=== PATIENT | female | born 1970 | race Caucasian/White ===

== ENCOUNTER 2017-04-10 18:00 | Emergency (ER) | payer MEDICAID ==
--- NOTE | 2017-04-10 19:00 | ED Physician Chart ---
Chief Complaint/HPI - Patient Information Date Seen:: 04/10/17 Time Seen:: 18:25 Chief Complaint:: left knee pain History of Present Illness:: THIS IS A 46 YO FEMALE WITH LEFT KNEE PAIN ON AND OFF FOR ABOUT A WEEK. SHE DENIES RECENT OR OLD TRAUMA. SHE DENIES A HISTORY OF ARTHRITIS OR JOINT DISEASE. SHE DENIES FEVER AND MUSCLE PAIN . Allergies:: Allergies Allergy/AdvReac Type Severity Reaction Status Date / Time Penicillins Allergy Verified 04/10/17 18:14 Vitals:: Vital Signs - 8 hr 04/10/17 04/10/17 18:15 18:52 Temp 98.3 F 98.0 F HR 74 74 RR 16 17 BP 111/56 111/56 O2 Sat % 97 97 Historian:: Patient, Family Member Review:: Nurse's Note Reviewed Review of Systems - Review of Systems General/Constitutional: No fever, No chills, No weight loss, No weakness, No diaphoresis, No edema, No loss of appetite Skin: No skin lesions, No rash, No bruising Head: No headache, No light-headedness Eyes: No loss of vision, No pain, No diplopia ENT: No earache, No nasal drainage, No sore throat, No tinnitus Neck: No neck pain, No swelling, No thyromegaly, No stiffness, No mass noted Cardio Vascular: No chest pain, No palpitations, No PND, No orthopnea, No edema Pulmonary: No SOB, No cough, No sputum, No wheezing GI: No nausea, No vomiting, No diarrhea, No pain, No melena, No hematochezia, No constipation, No hematemesis G/U: No dysuria, No frequency, No hematuria Musculoskeletal: Bone or joint pain (LEFT KNEE PAIN AND SWELLIING), No back pain , No muscle pain Endocrine: No polyuria, No polydipsia Psychiatric: No prior psych history, No depression, No anxiety, No suicidal ideation Hematopoietic: No bruising, No lymphadenopathy Allergic/Immuno: No urticaria, No angioedema Neurological: No syncope, No focal symptoms, No weakness, No paresthesia, No headache, No seizure, No dizziness, No confusion, No vertigo Past Medical History - Past Medical History Obtainable: Yes Family History: None Social History: Non Smoker, No Alcohol, No Drug Use Family Medical History - Family Member Mother History Unknown: Yes Physical Exam - Physical Examination General/Constitutional: Awake, Well-developed, well-nourished, Alert, No distress, GCS 15, Non-toxic appearing, Ambulatory Head: Atraumatic Eyes: Lids, conjuctiva normal, PERRL, EOMI Skin: Nl inspection, No rash, No skin lesions, No ecchymosis, Well hydrated, No lymphadenopathy ENMT: External ears, nose nl, Nasal exam nl, Lips, teeth, gums nl Neck: Nontender, Full ROM w/o pain, No JVD, No nuchal rigidity, No bruit, No mass, No stridor Respiratory: Nl effort/Exclusion, Clear to Auscultation, No Wheeze/Rhonchi/Rales Cardio Vascular: RRR, No murmur, gallop, rubs, NL S1 S2 GI: No tenderness/rebounding/guarding, No organomegaly, No hernia, Normal BS's, Nondistended, No mass/bruits, No McBurney tenderness : No CVA tenderness Extremities: No tenderness or effusion, Full ROM, normal strength in all extremities, No edema, Normal digits & nails Other Extremities comments:: LEFT KNEE PAINFUL BUT NORMAL ROM AND THERE IS NO SWELLING. Neuro/Psych: Alert/oriented, DTR's symmetric, Normal sensory exam, Normal motor strength, Judgement/insight normal, Mood normal, Normal gait, No focal deficits Misc: normal gait, Normal back, No paraspinal tenderness Labs/Radiology/EKG Results - Radiology Results Results: LEFT KNEE X-RAY = NAD FOUND Assessment - Assessment General Assessment: LEFT KNEE STRAIN ED Septic Shock - . Is Septic Shock (SBP<90, OR Lactate>4 mmol\L) present?: No - <6hrs of presentation: Vital Signs: Vital Signs - 8 hr 04/10/17 04/10/17 18:15 18:52 Temp 98.3 F 98.0 F HR 74 74 RR 16 17 BP 111/56 111/56 O2 Sat % 97 97 Reassessment (Disposition) - Reassessment Reassessment Condition:: Unchanged - Diagnosis Diagnosis:: LEFT KNEE STRAIN - Aftercare/Follow up Instructions Aftercare/Follow-Up Instructions:: Counseled pt regarding lab results/diagnosis & need follow up, Refer to Discharge Instructions, Counseled pt & family regarding lab results/diagnosis & need follow up - Patient Disposition Discharge/Transfer:: Home Condition at Disposition:: Unchanged ED Discharge Plan - Patient Disposition Admit/Discharge/Transfer: PT DISCHARGED HOME Condition at Disposition: Unchanged
--- NOTE | 2017-04-11 10:19 | Diagnostic Imaging Report ---
Exam: Left knee joint HISTORY: Pain Findings: Multiple views of the left knee joint reviewed. The study demonstrates mild degenerative the flattening of the tibial plateau. There is no evidence of fracture dislocation subluxation. The patella is intact. There is no evidence of for joint effusion. IMPRESSION: mild degenerative flattening of tibial plateau, if ligamentous or meniscal injury suspected MRI examination recommended.
== END 2017-04-10 19:10 | disposition home or self-care (01) ==
LOC: ER 18:00
DX: S76.112A Strain of left quadriceps muscle, fascia and tendon, initial encounter (principal); Z88.0 Allergy status to penicillin; X58.XXXA Exposure to other specified factors, initial encounter; Y93.89 Activity, other specified; Y92.89 Other specified places as the place of occurrence of the external cause; Y99.8 Other external cause status
CPT/HCPCS: 73562-TC-LT; Z7502

== ENCOUNTER 2018-02-21 08:03 | Inpatient (IN) | payer MEDICAID ==
--- NOTE | 2018-02-21 08:32 | ED Physician Chart ---
ED Chief Complaint/HPI - Patient Information Date Seen:: 02/21/18 Time Seen:: 08:27 Chief Complaint:: BODY ACHES History of Present Illness:: 47 YR OLD FEMALE WITH BODY ACHES SORE THROAT AND BACK PAIN FOR ONE DAY TOOK TYLENOL FOR PAIN NO VOMITING OR DIARHEA Allergies:: Allergies Allergy/AdvReac Type Severity Reaction Status Date / Time Penicillins Allergy Verified 04/10/17 18:14 Vitals:: Vital Signs - 8 hr 02/21/18 08:13 Temp 99.4 F HR 105 RR 19 BP 128/66 O2 Sat % 97 Historian:: Patient ED Review of Systems - Review of Systems General/Constitutional: Fever, Chills Skin: No skin lesions, No rash, No bruising Head: No headache, No light-headedness Eyes: No loss of vision, No pain, No diplopia ENT: No earache, No nasal drainage, No sore throat, No tinnitus Neck: No neck pain, No swelling, No thyromegaly, No stiffness, No mass noted Cardio Vascular: No chest pain, No palpitations, No PND, No orthopnea, No edema Pulmonary: No SOB, No cough, No sputum, No wheezing GI: No nausea, No vomiting, No diarrhea, No pain, No melena, No hematochezia, No constipation, No hematemesis G/U: Dysuria (BACK PAIN) Musculoskeletal: No bone or joint pain, No back pain, No muscle pain Endocrine: No polyuria, No polydipsia Psychiatric: No prior psych history, No depression, No anxiety, No suicidal ideation Hematopoietic: No bruising, No lymphadenopathy Allergic/Immuno: No urticaria, No angioedema Neurological: No syncope, No focal symptoms, No weakness, No paresthesia, No headache, No seizure, No dizziness, No confusion, No vertigo ED Past Medical History - Past Medical History Obtainable: No Family Medical History - Family Member Mother History Unknown: Yes Ethnicity: Living Status: Still Living Hx Family Hypertension: Yes Hx Family Diabetes: Yes ED Physical Exam - Physical Examination General/Constitutional: Awake, Well-developed, well-nourished, Alert, No distress, GCS 15, Non-toxic appearing, Ambulatory Head: Atraumatic Eyes: Lids, conjuctiva normal, PERRL, EOMI Skin: Nl inspection, No rash, No skin lesions, No ecchymosis, Well hydrated, No lymphadenopathy ENMT: External ears, nose nl, Nasal exam nl, Lips, teeth, gums nl Neck: Nontender, Full ROM w/o pain, No JVD, No nuchal rigidity, No bruit, No mass, No stridor Respiratory: Nl effort/Exclusion, Clear to Auscultation, No Wheeze/Rhonchi/Rales Cardio Vascular: RRR, No murmur, gallop, rubs, NL S1 S2 GI: No tenderness/rebounding/guarding, No organomegaly, No hernia, Normal BS's, Nondistended, No mass/bruits, No McBurney tenderness : No CVA tenderness Extremities: No tenderness or effusion, Full ROM, normal strength in all extremities, No edema, Normal digits & nails Neuro/Psych: Alert/oriented, DTR's symmetric, Normal sensory exam, Normal motor strength, Judgement/insight normal, Mood normal, Normal gait, No focal deficits Misc: Normal back (CVA TEND AND SUPRAPUBIC TEND), No paraspinal tenderness ED Assessment - Assessment General Assessment: FEVER CHILLS BODY ACHES R/O FLU SYNDROME VS UTI ED Septic Shock - . Is Septic Shock (SBP<90, OR Lactate>4 mmol\L) present?: No - <6hrs of presentation: Vital Signs: Vital Signs - 8 hr 02/21/18 08:13 Temp 99.4 F HR 105 RR 19 BP 128/66 O2 Sat % 97 ED Reassessment (Disposition) - Reassessment Reassessment Condition:: Improved - Diagnosis Diagnosis:: BACK PAIN FEVER CHILLS - Patient Disposition Condition at Disposition:: Stable
[2018-02-21] MEDS ORDERED: Sodium Chloride 0.9% 1,000 ML IV ONE (08:40)
[2018-02-21 09:04] LABS: URINE MICROSCOPIC INDICATED? YES; URINE SOURCE CLEAN C
[2018-02-21 09:13] LABS: URINE BILIRUBIN NEGATIVE (NEGATIVE); URINE BLOOD NEGATIVE (NEGATIVE); URINE GLUCOSE (UA) NEGATIVE (NEGATIVE); URINE KETONE NEGATIVE (NEGATIVE); URINE LEUKOCYTE ESTERASE NEGATIVE (NEGATIVE); URINE NITRATE NEGATIVE (NEGATIVE); URINE PH 7.5 (4.6 - 8.0); URINE PROTEIN NEGATIVE (NEGATIVE); URINE UROBILINOGEN 0.2 E.U./dL (0.2 - 1.0)
[2018-02-21 09:17] LABS: URINE CLARITY CLEAR (CLEAR); URINE COLOR YELLOW
[2018-02-21 09:18] LABS: HEMATOCRIT 42.8 % (41.0-60); HEMOGLOBIN 14.7 gm/dL (12-16); MEAN CELL VOLUME 90.4 fl (81-100); MEAN CORPUSCULAR HGB CONC 34.3 pg (28.0-36.0); MEAN PLATELET VOLUME 8.3 fl; PLATELET COUNT 284 Th/cmm (150-400); RED BLOOD COUNT 4.74 Mil/cmm (3.80-5.10)
[2018-02-21 09:20] LABS: WHITE BLOOD COUNT 16.9 Th/cmm (4.8-10.8)
[2018-02-21 09:22] LABS: ALB/GLOB RATIO 1.3 (1.0-1.8); ALBUMIN 4.2 gm/dL (3.7-5.3); ALKALINE PHOSPHATASE 85 U/L (34-104); ANION GAP 11.4 (7.0-16.0); BILIRUBIN,TOTAL 0.4 mg/dL (0.3-1.0); BUN - UREA NITROGEN 10 mg/dL (7-25); CALCIUM SERUM 9.3 mg/dL (8.6-10.3); CARBON DIOXIDE 24.2 mEq/L (21.0-31.0); CHLORIDE 102 mEq/L (98-107); CREATININE - SERUM 0.7 mg/dL (0.6-1.2); GFR AFRICAN-AMERICAN > 60.0 ml/min (>90); GFR NON AFRICAN-AMERICAN > 60.0 ml/min; GLUCOSE 123 mg/dL (70-105); POTASSIUM SERUM 3.6 mEq/L (3.5-5.1); SGOT 20 U/L (13-39); SGPT/ALT 32 U/L (7-52); SODIUM SERUM 134 mEq/L (136-145); TOTAL PROTEIN,SERUM 7.5 gm/dL (6.0-8.3)
[2018-02-21 09:29] LABS: URINE EPITHELIAL CELLS MODERATE /lpf (FEW); URINE RBC 0-2 /hpf (0-5)
[2018-02-21 09:30] LABS: URINE BACTERIA 1+ /hpf (NONE SEEN)
[2018-02-21 09:44] LABS: BAND NEUTROPHILE 4 % (0-10); LYMPHOCYTE 5 % (20-50); MONOCYTE 3 % (2-10); NEUTROPHILS 88 % (40-80); TOTAL CELLS COUNTED 100
--- NOTE | 2018-02-21 10:34 | Diagnostic Imaging Report ---
CT scan of the abdomen and pelvis without intravenous contrast History: Bowel pain Total DLP equals 575 CTDI equals 12.8 Axial sections were obtained from the xiphoid process down to the pubic symphysis. The liver demonstrates a normal size and contour. No focal lesions are seen. The spleen appears normal. No abnormalities are seen in the region of the pancreas. The kidneys appear normal bilaterally. There is evidence for diverticulosis of sigmoid colon without diverticulitis. The exam of the pelvis demonstrates preservation of normal fat planes. The uterus is enlarged. No abnormal soft tissue masses. No abnormal fluid collections. Urinary bladder is distended. Impression: Diverticulosis sigmoid colon. Prominent uterus.
[2018-02-21] MEDS ORDERED: Morphine Sulfate 2 mg/mL 1mL Syr IVP PRN (11:28)
[2018-02-21] MEDS ORDERED: D5-0.45NS 1,000 ML IV SCH (11:31)
[2018-02-21] MEDS ORDERED: metroNIDAZOLE 500mg/NS 100mL 500 MG/100 ML BAG IV ONE (11:54)
[2018-02-21] MEDS ORDERED: Levofloxacin 500mg/100mL 500 MG/100 ML BAG IV SCH (12:30)
[2018-02-21] MEDS: metroNIDAZOLE 500mg/NS 100mL 500 MG/100 ML BAG IV SCH ×2 (12:40→20:28)
[2018-02-22 05:09] LABS: HEMATOCRIT 42.6 % (41.0-60); HEMOGLOBIN 14.6 gm/dL (12-16); MEAN CELL VOLUME 89.1 fl (81-100); MEAN CORPUSCULAR HEMOGLOBIN 30.6 pg (27.0-31.0); MEAN CORPUSCULAR HGB CONC 34.4 pg (28.0-36.0); PLATELET COUNT 283 Th/cmm (150-400); RED BLOOD COUNT 4.78 Mil/cmm (3.80-5.10); RED CELL DISTRIBUTION WIDTH 12.9 % (11.5-20.0)
[2018-02-22] MEDS: metroNIDAZOLE 500mg/NS 100mL 500 MG/100 ML BAG IV SCH ×3 (05:10→20:46)
[2018-02-22 05:13] LABS: WHITE BLOOD COUNT 17.7 Th/cmm (4.8-10.8)
[2018-02-22 05:38] LABS: ALB/GLOB RATIO 1.2 (1.0-1.8); ALBUMIN 3.9 gm/dL (3.7-5.3); ALKALINE PHOSPHATASE 77 U/L (34-104); ANION GAP 11.5 (7.0-16.0); BILIRUBIN,TOTAL 0.3 mg/dL (0.3-1.0); BUN - UREA NITROGEN 9 mg/dL (7-25); CALCIUM SERUM 9.2 mg/dL (8.6-10.3); CARBON DIOXIDE 24.9 mEq/L (21.0-31.0); CHLORIDE 103 mEq/L (98-107); CREATININE - SERUM 0.7 mg/dL (0.6-1.2); GFR AFRICAN-AMERICAN > 60.0 ml/min (>90); GFR NON AFRICAN-AMERICAN > 60.0 ml/min; GLUCOSE 131 mg/dL (70-105); POTASSIUM SERUM 3.4 mEq/L (3.5-5.1); SGOT 15 U/L (13-39); SGPT/ALT 24 U/L (7-52); SODIUM SERUM 136 mEq/L (136-145); TOTAL PROTEIN,SERUM 7.2 gm/dL (6.0-8.3)
[2018-02-22 06:05] LABS: BAND NEUTROPHILE 6 % (0-10); LYMPHOCYTE 7 % (20-50); MONOCYTE 5 % (2-10); NEUTROPHILS 82 % (40-80); TOTAL CELLS COUNTED 100
--- NOTE | 2018-02-22 08:30 | History and Physical ---
History of Present Illness - HPI Chief Complaint: abdominal pain HPI: 47 y/o female who presents to [facility] ER for complaints of bodyaches and joint pain. Patient who presents with WBC's of 16.9. Patient underwent CT abd/pelvis which revealed diverticulitis. Patient was subsequently started on IV antibiotics and IV fluids and kept NPO and admitted for further evaluation and treatment. Vital Signs: Last Vital Signs Temp 97.7 F 02/22/18 07:54 Pulse 81 02/22/18 07:54 Resp 18 02/22/18 07:54 BP 107/65 02/22/18 07:54 Pulse Ox 96 02/22/18 07:54 Past Medical History Cardiovascular: Report: No Pertinent Hx Pulmonary: Report: No Pertinent Hx PHOTOGRAMMETRIC TECHNICIAN: Report: No Pertinent Hx GI: Report: No Pertinent Hx Psych: Report: No Pertinent Hx Musculoskeletal: Report: No Pertinent Hx Rheumatologic: Report: No pertinent Hx Infectious Disease: Report: No Pertinent Hx Renal/: Report: No Pertinent Hx Endocrine: Report: No Pertinent Hx Dermatology: Report: No Pertinent Hx - Past Surgical History Past Surgical History: No pertinent Hx Family Medical History - Family Member Mother History Unknown: Yes Ethnicity: Living Status: Hx Family Cancer: Yes Hx Family Coronary Artery Disease: No Hx Family Congestive Heart Failure: No Hx Family Hypertension: Yes Hx Family Stroke: No Hx Family Diabetes: Yes Hx Family Seizures: No Hx Family Dementia: No Hx Family AIDS: No Hx Family HIV: No Hx Family COPD: No Hx Family Hepatitis: No Hx Family Psychiatric Problems: No Hx Family Tuberculosis: No Social History Smoke: No Alcohol: None Drugs: None Lives: With Family - Medications Home Medications: Home Medication Medication Instructions Recorded Type NK [No Home Meds] 02/21/18 History - Allergies Allergies/Adverse Reactions: Allergies Allergy/AdvReac Type Severity Reaction Status Date / Time Penicillins Allergy Verified 04/10/17 18:14 Review of Systems - Review of Systems Constitutional: Report: No Significant Eyes: Report: No Significant ENT: Report: No Significant Respiratory: Report: No Significant Cardiovascular: Report: No Significant Gastrointestinal: Report: Abdominal Pain Genitourinary: Report: No Significant Musculoskeletal: Report: No Significant Skin: Report: No Significant Neurological: Report: No Significant Physical Exam - Physical Exam HEENT: Report: Ears Nose Throat within normal limits, Pharnyx within normal limits Neck: Report: Within normal limits Cardiovascular Systems: Report: +s1/s2 noted, Regular, Rate and Rhythm Respiratory: Report: Breath Sounds are within normal limits, Clear to Auscultation of lung mosquera Back: Report: Inspection of back is within normal limits. Extremities: Report: Non-tender to palpation. Skin: Report: Color of skin is within normal limits Neuro/Psych: Report: Mood affect is within normal limits, A+Ox3 - Lab Results All Lab Results last 24 hours: Laboratory Results - last 24 hr 02/21/18 02/21/18 02/21/18 08:00 08:00 08:45 WBC 16.9 H RBC 4.74 Hgb 14.7 Hct 42.8 MCV 90.4 MCH 31.0 MCHC Differential 34.3 RDW 13.0 Plt Count 284 MPV 8.3 Neutrophils % CALCULATING MACHINE MECHANIC Band Neutrophils % 4 Lymphocytes % CALCULATING MACHINE MECHANIC Monocytes % CALCULATING MACHINE MECHANIC Eosinophils % CALCULATING MACHINE MECHANIC Basophils % CALCULATING MACHINE MECHANIC Neutrophils (Manual) 88 H Lymphocytes 5 L Monocytes 3 Sodium Potassium Chloride Carbon Dioxide Anion Gap BUN Creatinine Est GFR ( Amer) Est GFR (Non-Af Amer) BUN/Creatinine Ratio Glucose Whole Bld Lactic Acid Calcium Total Bilirubin AST ALT Alkaline Phosphatase Total Protein Albumin Globulin Albumin/Globulin Ratio Urine Source CLEAN C Urine Color YELLOW Urine Clarity CLEAR Urine pH 7.5 Ur Specific [place] 1.010 Urine Protein NEGATIVE Urine Glucose (UA) NEGATIVE Urine Ketones NEGATIVE Urine Blood NEGATIVE Urine Nitrate NEGATIVE Urine Bilirubin NEGATIVE Urine Urobilinogen 0.2 Ur Leukocyte Esterase NEGATIVE Urine RBC 0-2 Urine WBC 2-5 Ur Epithelial Cells MODERATE Urine Bacteria 1+ H Urine Test NEGATIVE 02/21/18 02/21/18 02/22/18 08:45 08:45 05:00 WBC 17.7 H RBC 4.78 Hgb 14.6 Hct 42.6 MCV 89.1 MCH 30.6 MCHC Differential 34.4 RDW 12.9 Plt Count 283 MPV 8.0 Neutrophils % Band Neutrophils % 6 Lymphocytes % Monocytes % Eosinophils % Basophils % Neutrophils (Manual) 82 H Lymphocytes 7 L Monocytes 5 Sodium 134 L Potassium 3.6 Chloride 102 Carbon Dioxide 24.2 Anion Gap 11.4 BUN 10 Creatinine 0.7 Est GFR ( Amer) > 60.0 Est GFR (Non-Af Amer) > 60.0 BUN/Creatinine Ratio 14.3 Glucose 123 H Whole Bld Lactic Acid 1.26 Calcium 9.3 Total Bilirubin 0.4 AST 20 ALT 32 Alkaline Phosphatase 85 Total Protein 7.5 Albumin 4.2 Globulin 3.3 Albumin/Globulin Ratio 1.3 Urine Source Urine Color Urine Clarity Urine pH Ur Specific [place] Urine Protein Urine Glucose (UA) Urine Ketones Urine Blood Urine Nitrate Urine Bilirubin Urine Urobilinogen Ur Leukocyte Esterase Urine RBC Urine WBC Ur Epithelial Cells Urine Bacteria Urine Test 02/22/18 05:00 WBC RBC Hgb Hct MCV MCH MCHC Differential RDW Plt Count MPV Neutrophils % Band Neutrophils % Lymphocytes % Monocytes % Eosinophils % Basophils % Neutrophils (Manual) Lymphocytes Monocytes Sodium 136 Potassium 3.4 L Chloride 103 Carbon Dioxide 24.9 Anion Gap 11.5 BUN 9 Creatinine 0.7 Est GFR ( Amer) > 60.0 Est GFR (Non-Af Amer) > 60.0 BUN/Creatinine Ratio 12.9 Glucose 131 H Whole Bld Lactic Acid Calcium 9.2 Total Bilirubin 0.3 AST 15 ALT 24 Alkaline Phosphatase 77 Total Protein 7.2 Albumin 3.9 Globulin 3.3 Albumin/Globulin Ratio 1.2 Urine Source Urine Color Urine Clarity Urine pH Ur Specific [place] Urine Protein Urine Glucose (UA) Urine Ketones Urine Blood Urine Nitrate Urine Bilirubin Urine Urobilinogen Ur Leukocyte Esterase Urine RBC Urine WBC Ur Epithelial Cells Urine Bacteria Urine Test - Assessment Assessment: Current Active Problems Problem Status Onset GENERALIZED BODY ACHES AND ABDOMINAL EUGENIA Acute abdominal pain diverticulitis UTI - Plan Plan: NPO IV fluids pain meds IV Levofloxacin, IV Flagyl
[2018-02-22] MEDS: Levofloxacin 750mg/150mL 750 MG/150 ML BAG IV SCH (09:20)
[2018-02-22] MEDS ORDERED: Potassium Chloride 20 mEq ER Tab PO ONE (10:00)
--- NOTE | 2018-02-22 10:23 | Diagnostic Imaging Report ---
Ultrasound abdomen HISTORY: Epigastric pain COMPARISON: CT abdomen and pelvis on 02/21/2018 Technique: Sonography of the abdomen was performed in multiple planes. FINDINGS: Exam is limited due to bowel gas. The liver demonstrates increased echogenicity with no evidence of focal lesions. The liver measures 18.1 cm. No definite gallstones. There may be minimal sludge. The gallbladder wall measures 3 mm. The common bile duct measures 5 mm. Evaluation of the pancreas is limited due to bowel gas. The right kidney measures 12.1 x 4.9 cm. No evidence of focal lesions or hydronephrosis. The left kidney measures 10.6 x 5.1 cm. No evidence of focal lesions or hydronephrosis. The spleen measures 10.2 cm. Atherosclerotic vascular disease of the aorta is noted. IMPRESSION: Increased echogenicity of the liver which may be due to underlying fatty infiltration. Mild hepatomegaly is noted. No evidence of gallstones. There may be minimal gallbladder sludge. No pericholecystic fluid.
[2018-02-22] MEDS: D5-0.45NS w/20 mEq KCL 1,000 ML IV SCH (10:29)
--- NOTE | 2018-02-22 23:54 | Consultation ---
DATE OF CONSULTATION: 02/22/2018 INPATIENT GASTROINTESTINAL CONSULTATION REFERRING PHYSICIAN: Dr. Stewart. REASON FOR CONSULTATION: Diverticulitis. HISTORY OF PRESENT ILLNESS: A 47-year-old female complains of diffuse abdominal pain; therefore, came to the hospital, had CT scan that is suggestive of diverticulitis. The patient denies nausea, vomiting, diarrhea, constipation, melena, hematochezia, hematemesis, or coffee ground emesis. PAST MEDICAL HISTORY: None. PAST SURGICAL HISTORY: . FAMILY HISTORY: Noncontributory. SOCIAL HISTORY: Denies tobacco, alcohol or IV drug usage. ALLERGIES: PENICILLIN. CURRENT MEDICATIONS: Tylenol, Levaquin, Flagyl, morphine, Protonix, Ultram. REVIEW OF SYSTEMS: Ten point review of system was performed and the pertinent positive was the abdominal pain. All the systems were otherwise negative. PHYSICAL EXAMINATION: VITAL SIGNS: Temperature 97, breathing 19, pulse of 77, blood pressure 112/61, satting 95%. GENERAL: In no apparent distress. EYES: Anicteric. Normal conjunctivae. HEENT: Normocephalic, atraumatic. Moist mucous membranes. NECK: Soft, supple. CHEST: Clear. No effort. CARDIOVASCULAR: Regular rate and rhythm. ABDOMEN: Soft, nondistended, mildly tender. No rebound, no guarding. SKIN: Warm, dry. EXTREMITIES: Reveal no cyanosis. PSYCHOLOGICAL: Alert and oriented x 3. LABORATORY DATA: Show a white count 17.7, hemoglobin 14.6, platelets of 283. Total bilirubin 0.3, AST 15, ALT 24, alkaline phosphatase 77. test was negative. CT abdomen and pelvis showed diverticulosis. Abdominal ultrasound showed fatty liver. IMPRESSION: A 47-year-old female with abdominal pain, likely due to acute diverticulitis given the elevated white count. The patient has a fatty liver on imaging. LFTs were within normal limits. PLAN: 1. Continue antibiotics. 2. The patient should have a colonoscopy in 6-8 weeks as an outpatient. This is discussed with her and her daughters and they will follow up with her PCP to have this arranged. 3. Gradual weight loss for the fatty liver. Thank you for allowing me to participate. Please call me if any questions. [facility]# [id number] [id number]
[2018-02-23] MEDS: metroNIDAZOLE 500mg/NS 100mL 500 MG/100 ML BAG IV SCH ×3 (05:00→21:10)
[2018-02-23 05:12] LABS: % BASOPHILS 0.5 % (0.0-2.0); % EOSINOPHILS 0.4 % (0.0-5.0); % LYMPHOCYTES 12.7 % (20.0-50.0); % MONOCYTES 10.3 % (2.0-10.0); % NEUTROPHILS 76.1 % (40.0-80.0); BASOPHILE ABSOLUTE 0.1 Th/cumm (0-0.2); EOSINOPHILE ABSOLUTE 0.1 Th/cmm (0.1-0.4); HEMATOCRIT 42.2 % (41.0-60); HEMOGLOBIN 14.3 gm/dL (12-16); LYMPHOCYTE ABSOLUTE 1.8 Th/cmm (1.5-3.0); MEAN CELL VOLUME 90.1 fl (81-100); MEAN CORPUSCULAR HEMOGLOBIN 30.6 pg (27.0-31.0); MEAN PLATELET VOLUME 8.3 fl; MONOCYTE ABSOLUTE 1.5 Th/cmm (0.3-1.0); NEUTROPHILE ABSOLUTE 10.6 Th/cmm (1.8-8.0); PLATELET COUNT 260 Th/cmm (150-400); RED BLOOD COUNT 4.68 Mil/cmm (3.80-5.10); RED CELL DISTRIBUTION WIDTH 13.1 % (11.5-20.0)
[2018-02-23 05:26] LABS: WHITE BLOOD COUNT 14.1 Th/cmm (4.8-10.8)
[2018-02-23 05:39] LABS: ALB/GLOB RATIO 1.3 (1.0-1.8); ALBUMIN 3.9 gm/dL (3.7-5.3); ALKALINE PHOSPHATASE 72 U/L (34-104); ANION GAP 9.6 (7.0-16.0); BILIRUBIN,TOTAL 0.2 mg/dL (0.3-1.0); BUN - UREA NITROGEN 8 mg/dL (7-25); CALCIUM SERUM 9.2 mg/dL (8.6-10.3); CHLORIDE 103 mEq/L (98-107); CREATININE - SERUM 0.7 mg/dL (0.6-1.2); GFR AFRICAN-AMERICAN > 60.0 ml/min (>90); GFR NON AFRICAN-AMERICAN > 60.0 ml/min; GLUCOSE 110 mg/dL (70-105); POTASSIUM SERUM 3.6 mEq/L (3.5-5.1); SGOT 14 U/L (13-39); SGPT/ALT 20 U/L (7-52); SODIUM SERUM 135 mEq/L (136-145)
--- NOTE | 2018-02-23 07:42 | GI Progress Note ---
Subjective - Review of Systems Subjective: 47 YO MALE WITH GALLSTONES CAUSING SYMPTOMS LFTS NORMAL 1.SURGERY EVAL 2.CHECK HIDA Objective - Results Result Diagrams: 02/23/18 04:40 02/23/18 04:40 Recent Labs: Laboratory Last Values WBC 14.1 Th/cmm (4.8-10.8) H D 02/23/18 04:40 RBC 4.68 Mil/cmm (3.80-5.10) 02/23/18 04:40 Hgb 14.3 gm/dL (12-16) 02/23/18 04:40 Hct 42.2 % (41.0-60) 02/23/18 04:40 MCV 90.1 fl (81-100) 02/23/18 04:40 MCH 30.6 pg (27.0-31.0) 02/23/18 04:40 MCHC Differential 34.0 pg (28.0-36.0) 02/23/18 04:40 RDW 13.1 % (11.5-20.0) 02/23/18 04:40 Plt Count 260 Th/cmm (150-400) 02/23/18 04:40 MPV 8.3 fl 02/23/18 04:40 Neutrophils % 76.1 % (40.0-80.0) 02/23/18 04:40 Band Neutrophils % 6 % (0-10) 02/22/18 05:00 Lymphocytes % 12.7 % (20.0-50.0) L 02/23/18 04:40 Monocytes % 10.3 % (2.0-10.0) H 02/23/18 04:40 Eosinophils % 0.4 % (0.0-5.0) 02/23/18 04:40 Basophils % 0.5 % (0.0-2.0) 02/23/18 04:40 Neutrophils (Manual) 82 % (40-80) H 02/22/18 05:00 Lymphocytes 7 % (20-50) L 02/22/18 05:00 Monocytes 5 % (2-10) 02/22/18 05:00 Sodium 135 mEq/L (136-145) L 02/23/18 04:40 Potassium 3.6 mEq/L (3.5-5.1) 02/23/18 04:40 Chloride 103 mEq/L (98-107) 02/23/18 04:40 Carbon Dioxide 26.0 mEq/L (21.0-31.0) 02/23/18 04:40 Anion Gap 9.6 (7.0-16.0) 02/23/18 04:40 BUN 8 mg/dL (7-25) 02/23/18 04:40 Creatinine 0.7 mg/dL (0.6-1.2) 02/23/18 04:40 Est GFR ( Amer) > 60.0 ml/min (>90) 02/23/18 04:40 Est GFR (Non-Af Amer) > 60.0 ml/min 02/23/18 04:40 BUN/Creatinine Ratio 11.4 02/23/18 04:40 Glucose 110 mg/dL (70-105) H 02/23/18 04:40 Whole Bld Lactic Acid 1.26 mmol/L (0.60-1.99) 02/21/18 08:45 Calcium 9.2 mg/dL (8.6-10.3) 02/23/18 04:40 Magnesium 2.1 mg/dL (1.9-2.7) 02/22/18 05:00 Total Bilirubin 0.2 mg/dL (0.3-1.0) L 02/23/18 04:40 AST 14 U/L (13-39) 02/23/18 04:40 ALT 20 U/L (7-52) 02/23/18 04:40 Alkaline Phosphatase 72 U/L (34-104) 02/23/18 04:40 Total Protein 7.0 gm/dL (6.0-8.3) 02/23/18 04:40 Albumin 3.9 gm/dL (3.7-5.3) 02/23/18 04:40 Globulin 3.1 gm/dL 02/23/18 04:40 Albumin/Globulin Ratio 1.3 (1.0-1.8) 02/23/18 04:40 Urine Source CLEAN C 02/21/18 08:00 Urine Color YELLOW 02/21/18 08:00 Urine Clarity CLEAR (CLEAR) 02/21/18 08:00 Urine pH 7.5 (4.6 - 8.0) 02/21/18 08:00 Ur Specific [place] 1.010 (1.005-1.030) 02/21/18 08:00 Urine Protein NEGATIVE mg/dL (NEGATIVE) 02/21/18 08:00 Urine Glucose (UA) NEGATIVE mg/dL (NEGATIVE) 02/21/18 08:00 Urine Ketones NEGATIVE mg/dL (NEGATIVE) 02/21/18 08:00 Urine Blood NEGATIVE (NEGATIVE) 02/21/18 08:00 Urine Nitrate NEGATIVE (NEGATIVE) 02/21/18 08:00 Urine Bilirubin NEGATIVE (NEGATIVE) 02/21/18 08:00 Urine Urobilinogen 0.2 E.U./dL (0.2 - 1.0) 02/21/18 08:00 Ur Leukocyte Esterase NEGATIVE (NEGATIVE) 02/21/18 08:00 Urine RBC 0-2 /hpf (0-5) 02/21/18 08:00 Urine WBC 2-5 /hpf (0-5) 02/21/18 08:00 Ur Epithelial Cells MODERATE /lpf (FEW) 02/21/18 08:00 Urine Bacteria 1+ /hpf (NONE SEEN) H 02/21/18 08:00 Urine Test NEGATIVE 02/21/18 08:00 - Physical Exam Vitals and I&O: Vital Signs Temp 97.4 F 02/23/18 04:00 Pulse 75 02/23/18 04:00 Resp 17 02/23/18 04:00 BP 101/65 02/23/18 04:00 Pulse Ox 97 02/23/18 04:00 Intake & Output 02/22/18 02/23/18 02/23/18 18:59 06:59 18:59 Intake Total 250 340 Balance 250 340 Weight (lbs) 85.275 kg Intake: Intake, IV Amount 250 100 Levofloxacin 750mg/150mL 150 750 mg In 150 ml @ 100 mls/hr IV Q24HR [facility] Rx#: [id number] metroNIDAZOLE 500mg/NS 100 100 100mL 500 mg In 100 ml @ 100 mls/hr IV Q8HR [facility] Rx #:[id number] Oral 240 Other: Weight Source Bedscale Active Medications: Current Medications Acetaminophen (Tylenol) 650 mg PO Q6H PRN PRN Reason: Headache Stop: 04/22/18 13:02 Last Admin: 02/22/18 02:25 Dose: 650 mg Metronidazole (Flagyl) 500 mg in 100 mls @ 100 mls/hr IV Q8HR REPLACED BY [facility] Stop: 04/22/18 12:59 Last Admin: 02/23/18 05:00 Dose: 100 mls/hr Potassium Chloride/Dextrose/Sod Cl (D5-0.45ns W/20 Meq Kcl) 1,000 mls @ 50 mls/ hr IV .Q20H REPLACED BY [facility] Stop: 04/23/18 07:14 Last Admin: 02/22/18 10:29 Dose: 50 mls/hr Levofloxacin (Levaquin Pb) 750 mg in 150 mls @ 100 mls/hr IV Q24HR REPLACED BY [facility] Stop: 04/23/18 08:59 Last Infusion: 02/22/18 10:50 Dose: Infused Morphine Sulfate (Morphine) 2 mg IVP Q6H PRN PRN Reason: Pain (Moderate) Stop: 04/22/18 11:29 Last Admin: 02/21/18 17:00 Dose: 2 mg Pantoprazole Sodium (Protonix) 40 mg IVP DAILY REPLACED BY [facility] Stop: 04/23/18 08:59 Last Admin: 02/22/18 09:25 Dose: 40 mg Tramadol HCl (Ultram) 50 mg PO Q6HR PRN PRN Reason: Pain (Moderate) Stop: 04/23/18 08:58 Last Admin: 02/22/18 21:09 Dose: 50 mg - Procedures Procedures: Procedures Procedure Code Date ASPIRAT CURET-POST DELIV 69.52 02/16/06 DELIVERY ONLY 09016 03/16/08 DX PROC FETUS/AMNION NEC 75.35 07/08/02 EPISIOTOMY 73.6 07/08/02 MONITORING NOS 75.34 03/16/08 LOW CERVICAL 74.1 03/16/08 OBSTETRICAL CARE 88464 07/08/02 OBSTETRICAL CARE 54099 03/29/99 TREATMENT OF MISCARRIAGE 09023 02/16/06 Assessment/Plan - Problem List Patient Problems: All Active Problems GENERALIZED BODY ACHES AND ABDOMINAL EUGENIA (Acute)
--- NOTE | 2018-02-23 08:44 | General Progress Note ---
Subjective - Review of Systems Service Date: 02/23/18 Subjective: Patient was seen and examined. Doing much better. less pain, diarrhea. Objective - Results Result Diagrams: 02/23/18 04:40 02/23/18 04:40 Recent Labs: Laboratory Last Values WBC 14.1 Th/cmm (4.8-10.8) H D 02/23/18 04:40 RBC 4.68 Mil/cmm (3.80-5.10) 02/23/18 04:40 Hgb 14.3 gm/dL (12-16) 02/23/18 04:40 Hct 42.2 % (41.0-60) 02/23/18 04:40 MCV 90.1 fl (81-100) 02/23/18 04:40 MCH 30.6 pg (27.0-31.0) 02/23/18 04:40 MCHC Differential 34.0 pg (28.0-36.0) 02/23/18 04:40 RDW 13.1 % (11.5-20.0) 02/23/18 04:40 Plt Count 260 Th/cmm (150-400) 02/23/18 04:40 MPV 8.3 fl 02/23/18 04:40 Neutrophils % 76.1 % (40.0-80.0) 02/23/18 04:40 Band Neutrophils % 6 % (0-10) 02/22/18 05:00 Lymphocytes % 12.7 % (20.0-50.0) L 02/23/18 04:40 Monocytes % 10.3 % (2.0-10.0) H 02/23/18 04:40 Eosinophils % 0.4 % (0.0-5.0) 02/23/18 04:40 Basophils % 0.5 % (0.0-2.0) 02/23/18 04:40 Neutrophils (Manual) 82 % (40-80) H 02/22/18 05:00 Lymphocytes 7 % (20-50) L 02/22/18 05:00 Monocytes 5 % (2-10) 02/22/18 05:00 Sodium 135 mEq/L (136-145) L 02/23/18 04:40 Potassium 3.6 mEq/L (3.5-5.1) 02/23/18 04:40 Chloride 103 mEq/L (98-107) 02/23/18 04:40 Carbon Dioxide 26.0 mEq/L (21.0-31.0) 02/23/18 04:40 Anion Gap 9.6 (7.0-16.0) 02/23/18 04:40 BUN 8 mg/dL (7-25) 02/23/18 04:40 Creatinine 0.7 mg/dL (0.6-1.2) 02/23/18 04:40 Est GFR ( Amer) > 60.0 ml/min (>90) 02/23/18 04:40 Est GFR (Non-Af Amer) > 60.0 ml/min 02/23/18 04:40 BUN/Creatinine Ratio 11.4 02/23/18 04:40 Glucose 110 mg/dL (70-105) H 02/23/18 04:40 Whole Bld Lactic Acid 1.26 mmol/L (0.60-1.99) 02/21/18 08:45 Calcium 9.2 mg/dL (8.6-10.3) 02/23/18 04:40 Magnesium 2.1 mg/dL (1.9-2.7) 02/22/18 05:00 Total Bilirubin 0.2 mg/dL (0.3-1.0) L 02/23/18 04:40 AST 14 U/L (13-39) 02/23/18 04:40 ALT 20 U/L (7-52) 02/23/18 04:40 Alkaline Phosphatase 72 U/L (34-104) 02/23/18 04:40 Total Protein 7.0 gm/dL (6.0-8.3) 02/23/18 04:40 Albumin 3.9 gm/dL (3.7-5.3) 02/23/18 04:40 Globulin 3.1 gm/dL 02/23/18 04:40 Albumin/Globulin Ratio 1.3 (1.0-1.8) 02/23/18 04:40 Urine Source CLEAN C 02/21/18 08:00 Urine Color YELLOW 02/21/18 08:00 Urine Clarity CLEAR (CLEAR) 02/21/18 08:00 Urine pH 7.5 (4.6 - 8.0) 02/21/18 08:00 Ur Specific [place] 1.010 (1.005-1.030) 02/21/18 08:00 Urine Protein NEGATIVE mg/dL (NEGATIVE) 02/21/18 08:00 Urine Glucose (UA) NEGATIVE mg/dL (NEGATIVE) 02/21/18 08:00 Urine Ketones NEGATIVE mg/dL (NEGATIVE) 02/21/18 08:00 Urine Blood NEGATIVE (NEGATIVE) 02/21/18 08:00 Urine Nitrate NEGATIVE (NEGATIVE) 02/21/18 08:00 Urine Bilirubin NEGATIVE (NEGATIVE) 02/21/18 08:00 Urine Urobilinogen 0.2 E.U./dL (0.2 - 1.0) 02/21/18 08:00 Ur Leukocyte Esterase NEGATIVE (NEGATIVE) 02/21/18 08:00 Urine RBC 0-2 /hpf (0-5) 02/21/18 08:00 Urine WBC 2-5 /hpf (0-5) 02/21/18 08:00 Ur Epithelial Cells MODERATE /lpf (FEW) 02/21/18 08:00 Urine Bacteria 1+ /hpf (NONE SEEN) H 02/21/18 08:00 Urine Test NEGATIVE 02/21/18 08:00 - Physical Exam Vitals and I&O: Vital Signs Temp 96.8 F 02/23/18 08:00 Pulse 68 02/23/18 08:00 Resp 19 02/23/18 08:00 BP 92/51 02/23/18 08:00 Pulse Ox 98 02/23/18 08:00 Intake & Output 02/22/18 02/23/18 02/23/18 18:59 06:59 18:59 Intake Total 250 340 Balance 250 340 Weight (lbs) 85.275 kg Intake: Intake, IV Amount 250 100 Levofloxacin 750mg/150mL 150 750 mg In 150 ml @ 100 mls/hr IV Q24HR [facility] Rx#: [id number] metroNIDAZOLE 500mg/NS 100 100 100mL 500 mg In 100 ml @ 100 mls/hr IV Q8HR [facility] Rx #:[id number] Oral 240 Other: Weight Source Bedscale Active Medications: Current Medications Acetaminophen (Tylenol) 650 mg PO Q6H PRN PRN Reason: Headache Stop: 04/22/18 13:02 Last Admin: 02/22/18 02:25 Dose: 650 mg Metronidazole (Flagyl) 500 mg in 100 mls @ 100 mls/hr IV Q8HR [facility] Stop: 04/22/18 12:59 Last Admin: 02/23/18 05:00 Dose: 100 mls/hr Potassium Chloride/Dextrose/Sod Cl (D5-0.45ns W/20 Meq Kcl) 1,000 mls @ 50 mls/ hr IV .Q20H [facility] Stop: 04/23/18 07:14 Last Admin: 02/22/18 10:29 Dose: 50 mls/hr Levofloxacin (Levaquin Pb) 750 mg in 150 mls @ 100 mls/hr IV Q24HR [facility] Stop: 04/23/18 08:59 Last Infusion: 02/22/18 10:50 Dose: Infused Morphine Sulfate (Morphine) 2 mg IVP Q6H PRN PRN Reason: Pain (Moderate) Stop: 04/22/18 11:29 Last Admin: 02/21/18 17:00 Dose: 2 mg Pantoprazole Sodium (Protonix) 40 mg IVP DAILY [facility] Stop: 04/23/18 08:59 Last Admin: 02/22/18 09:25 Dose: 40 mg Tramadol HCl (Ultram) 50 mg PO Q6HR PRN PRN Reason: Pain (Moderate) Stop: 04/23/18 08:58 Last Admin: 02/22/18 21:09 Dose: 50 mg General: Alert, Oriented x3, No acute distress HEENT: Atraumatic, PERRLA, EOMI Neck: Supple Cardiovascular: Regular rate, Normal S1, Normal S2 Lungs: Clear to auscultation Abdomen: Bowel sounds, Soft Extremities: no Clubbing, no Cyanosis, no Edema - Procedures Procedures: Procedures Procedure Code Date ASPIRAT CURET-POST DELIV 69.52 02/16/06 DELIVERY ONLY 01849 03/16/08 DX PROC FETUS/AMNION NEC 75.35 07/08/02 EPISIOTOMY 73.6 07/08/02 MONITORING NOS 75.34 03/16/08 LOW CERVICAL 74.1 03/16/08 OBSTETRICAL CARE 08188 07/08/02 OBSTETRICAL CARE 27739 03/29/99 TREATMENT OF MISCARRIAGE 27934 02/16/06 Assessment/Plan - Problem List Patient Problems: All Active Problems GENERALIZED BODY ACHES AND ABDOMINAL EUGENIA (Acute) - Assessment Assessment: Current Active Problems Problem Status Onset GENERALIZED BODY ACHES AND ABDOMINAL EUGENIA Acute abdominal pain diverticulitis UTI - Plan Plan: on clear liquids IV fluids pain meds IV Levofloxacin IV Flagyl
[2018-02-23] MEDS: Levofloxacin 750mg/150mL 750 MG/150 ML BAG IV SCH (08:58)
[2018-02-23] MEDS: D5-0.45NS w/20 mEq KCL 1,000 ML IV SCH (12:54)
[2018-02-24] MEDS: metroNIDAZOLE 500mg/NS 100mL 500 MG/100 ML BAG IV SCH ×3 (04:42→21:14)
--- NOTE | 2018-02-24 05:48 | General Progress Note ---
Subjective - Review of Systems Service Date: 02/24/18 Subjective: Patient was seen and examined. Doing much better. less pain, tolerating clear liquids. Objective - Results Result Diagrams: 02/23/18 04:40 02/23/18 04:40 Recent Labs: Laboratory Last Values WBC 14.1 Th/cmm (4.8-10.8) H D 02/23/18 04:40 RBC 4.68 Mil/cmm (3.80-5.10) 02/23/18 04:40 Hgb 14.3 gm/dL (12-16) 02/23/18 04:40 Hct 42.2 % (41.0-60) 02/23/18 04:40 MCV 90.1 fl (81-100) 02/23/18 04:40 MCH 30.6 pg (27.0-31.0) 02/23/18 04:40 MCHC Differential 34.0 pg (28.0-36.0) 02/23/18 04:40 RDW 13.1 % (11.5-20.0) 02/23/18 04:40 Plt Count 260 Th/cmm (150-400) 02/23/18 04:40 MPV 8.3 fl 02/23/18 04:40 Neutrophils % 76.1 % (40.0-80.0) 02/23/18 04:40 Band Neutrophils % 6 % (0-10) 02/22/18 05:00 Lymphocytes % 12.7 % (20.0-50.0) L 02/23/18 04:40 Monocytes % 10.3 % (2.0-10.0) H 02/23/18 04:40 Eosinophils % 0.4 % (0.0-5.0) 02/23/18 04:40 Basophils % 0.5 % (0.0-2.0) 02/23/18 04:40 Neutrophils (Manual) 82 % (40-80) H 02/22/18 05:00 Lymphocytes 7 % (20-50) L 02/22/18 05:00 Monocytes 5 % (2-10) 02/22/18 05:00 Sodium 135 mEq/L (136-145) L 02/23/18 04:40 Potassium 3.6 mEq/L (3.5-5.1) 02/23/18 04:40 Chloride 103 mEq/L (98-107) 02/23/18 04:40 Carbon Dioxide 26.0 mEq/L (21.0-31.0) 02/23/18 04:40 Anion Gap 9.6 (7.0-16.0) 02/23/18 04:40 BUN 8 mg/dL (7-25) 02/23/18 04:40 Creatinine 0.7 mg/dL (0.6-1.2) 02/23/18 04:40 Est GFR ( Amer) > 60.0 ml/min (>90) 02/23/18 04:40 Est GFR (Non-Af Amer) > 60.0 ml/min 02/23/18 04:40 BUN/Creatinine Ratio 11.4 02/23/18 04:40 Glucose 110 mg/dL (70-105) H 02/23/18 04:40 Whole Bld Lactic Acid 1.26 mmol/L (0.60-1.99) 02/21/18 08:45 Calcium 9.2 mg/dL (8.6-10.3) 02/23/18 04:40 Magnesium 2.1 mg/dL (1.9-2.7) 02/22/18 05:00 Total Bilirubin 0.2 mg/dL (0.3-1.0) L 02/23/18 04:40 AST 14 U/L (13-39) 02/23/18 04:40 ALT 20 U/L (7-52) 02/23/18 04:40 Alkaline Phosphatase 72 U/L (34-104) 02/23/18 04:40 Total Protein 7.0 gm/dL (6.0-8.3) 02/23/18 04:40 Albumin 3.9 gm/dL (3.7-5.3) 02/23/18 04:40 Globulin 3.1 gm/dL 02/23/18 04:40 Albumin/Globulin Ratio 1.3 (1.0-1.8) 02/23/18 04:40 Urine Source CLEAN C 02/21/18 08:00 Urine Color YELLOW 02/21/18 08:00 Urine Clarity CLEAR (CLEAR) 02/21/18 08:00 Urine pH 7.5 (4.6 - 8.0) 02/21/18 08:00 Ur Specific [place] 1.010 (1.005-1.030) 02/21/18 08:00 Urine Protein NEGATIVE mg/dL (NEGATIVE) 02/21/18 08:00 Urine Glucose (UA) NEGATIVE mg/dL (NEGATIVE) 02/21/18 08:00 Urine Ketones NEGATIVE mg/dL (NEGATIVE) 02/21/18 08:00 Urine Blood NEGATIVE (NEGATIVE) 02/21/18 08:00 Urine Nitrate NEGATIVE (NEGATIVE) 02/21/18 08:00 Urine Bilirubin NEGATIVE (NEGATIVE) 02/21/18 08:00 Urine Urobilinogen 0.2 E.U./dL (0.2 - 1.0) 02/21/18 08:00 Ur Leukocyte Esterase NEGATIVE (NEGATIVE) 02/21/18 08:00 Urine RBC 0-2 /hpf (0-5) 02/21/18 08:00 Urine WBC 2-5 /hpf (0-5) 02/21/18 08:00 Ur Epithelial Cells MODERATE /lpf (FEW) 02/21/18 08:00 Urine Bacteria 1+ /hpf (NONE SEEN) H 02/21/18 08:00 Urine Test NEGATIVE 02/21/18 08:00 - Physical Exam Vitals and I&O: Vital Signs Temp 97.0 F 02/24/18 04:00 Pulse 63 02/24/18 04:00 Resp 18 02/24/18 04:00 BP 98/52 02/24/18 04:00 Pulse Ox 97 02/24/18 04:00 Intake & Output 02/23/18 02/23/18 02/24/18 06:59 18:59 06:59 Intake Total 1440 250 440 Balance 1440 250 440 Weight (lbs) 85.275 kg 84.504 kg Intake: Intake, IV Amount 1200 250 100 D5-0.45NS w/20 mEq KCL 1, 1000 000 ml @ 50 mls/hr IV . Q20H [facility] Rx#:[id number] Levofloxacin 750mg/150mL 150 750 mg In 150 ml @ 100 mls/hr IV Q24HR [facility] Rx#: [id number] metroNIDAZOLE 500mg/NS 200 100 100 100mL 500 mg In 100 ml @ 100 mls/hr IV Q8HR [facility] Rx #:[id number] Oral 240 340 Other: # Voids 3 # Bowel Movements 0 Weight Source Bedscale Bedscale Active Medications: Current Medications Acetaminophen (Tylenol) 650 mg PO Q6H PRN PRN Reason: Headache Stop: 04/22/18 13:02 Last Admin: 02/22/18 02:25 Dose: 650 mg Metronidazole (Flagyl) 500 mg in 100 mls @ 100 mls/hr IV Q8HR [facility] Stop: 04/22/18 12:59 Last Admin: 02/24/18 04:42 Dose: 100 mls/hr Potassium Chloride/Dextrose/Sod Cl (D5-0.45ns W/20 Meq Kcl) 1,000 mls @ 50 mls/ hr IV .Q20H [facility] Stop: 04/23/18 07:14 Last Admin: 02/23/18 12:54 Dose: 50 mls/hr Levofloxacin (Levaquin Pb) 750 mg in 150 mls @ 100 mls/hr IV Q24HR [facility] Stop: 04/23/18 08:59 Last Infusion: 02/23/18 10:28 Dose: Infused Morphine Sulfate (Morphine) 2 mg IVP Q6H PRN PRN Reason: Pain (Moderate) Stop: 04/22/18 11:29 Last Admin: 02/21/18 17:00 Dose: 2 mg Ondansetron HCl (Zofran) 4 mg IV Q4H PRN PRN Reason: Nausea / Vomiting Stop: 04/24/18 11:20 Last Admin: 02/23/18 11:35 Dose: 4 mg Pantoprazole Sodium (Protonix) 40 mg IVP DAILY [facility] Stop: 04/23/18 08:59 Last Admin: 02/23/18 08:58 Dose: 40 mg Tramadol HCl (Ultram) 50 mg PO Q6HR PRN PRN Reason: Pain (Moderate) Stop: 04/23/18 08:58 Last Admin: 02/23/18 11:35 Dose: 50 mg General: Alert, Oriented x3, No acute distress HEENT: Atraumatic, PERRLA, EOMI Neck: Supple Cardiovascular: Regular rate, Normal S1, Normal S2 Lungs: Clear to auscultation Abdomen: Bowel sounds, Soft Extremities: no Clubbing, no Cyanosis, no Edema - Procedures Procedures: Procedures Procedure Code Date ASPIRAT CURET-POST DELIV 69.52 02/16/06 DELIVERY ONLY 15447 03/16/08 DX PROC FETUS/AMNION NEC 75.35 07/08/02 EPISIOTOMY 73.6 07/08/02 MONITORING NOS 75.34 03/16/08 LOW CERVICAL 74.1 03/16/08 OBSTETRICAL CARE 03683 07/08/02 OBSTETRICAL CARE 05507 03/29/99 TREATMENT OF MISCARRIAGE 72986 02/16/06 Assessment/Plan - Problem List Patient Problems: All Active Problems GENERALIZED BODY ACHES AND ABDOMINAL EUGENIA (Acute) - Assessment Assessment: Current Active Problems Problem Status Onset GENERALIZED BODY ACHES AND ABDOMINAL EUGENIA Acute diarrhea improved abdominal pain better headaches improved diverticulitis improving leukocytosis UTI - Plan Plan: on clear liquids IV fluids pain meds IV Levofloxacin 750mg IV Flagyl 500mg
[2018-02-24 06:31] LABS: % EOSINOPHILS 1.6 % (0.0-5.0); EOSINOPHILE ABSOLUTE 0.1 Th/cmm (0.1-0.4); HEMOGLOBIN 13.8 gm/dL (12-16); RED CELL DISTRIBUTION WIDTH 13.1 % (11.5-20.0)
[2018-02-24 06:40] LABS: % BASOPHILS 0.5 % (0.0-2.0); % LYMPHOCYTES 33.3 % (20.0-50.0); % MONOCYTES 12.2 % (2.0-10.0); % NEUTROPHILS 52.4 % (40.0-80.0); LYMPHOCYTE ABSOLUTE 2.7 Th/cmm (1.5-3.0); MEAN CELL VOLUME 90.9 fl (81-100); MEAN CORPUSCULAR HEMOGLOBIN 29.8 pg (27.0-31.0); MEAN CORPUSCULAR HGB CONC 32.8 pg (28.0-36.0); MEAN PLATELET VOLUME 8.2 fl; NEUTROPHILE ABSOLUTE 4.2 Th/cmm (1.8-8.0); PLATELET COUNT 300 Th/cmm (150-400); RED BLOOD COUNT 4.62 Mil/cmm (3.80-5.10)
[2018-02-24 06:41] LABS: BUN - UREA NITROGEN 8 mg/dL (7-25); CALCIUM SERUM 9.3 mg/dL (8.6-10.3); CARBON DIOXIDE 24.7 mEq/L (21.0-31.0); CHLORIDE 105 mEq/L (98-107); CREATININE - SERUM 0.7 mg/dL (0.6-1.2); GFR AFRICAN-AMERICAN > 60.0 ml/min (>90); GFR NON AFRICAN-AMERICAN > 60.0 ml/min; GLUCOSE 89 mg/dL (70-105); POTASSIUM SERUM 3.7 mEq/L (3.5-5.1); SODIUM SERUM 138 mEq/L (136-145)
[2018-02-24] MEDS: Levofloxacin 750mg/150mL 750 MG/150 ML BAG IV SCH (08:28)
--- NOTE | 2018-02-24 09:19 | GI Progress Note ---
Subjective - Review of Systems Subjective: FEELING BETTER WANTS TO EAT MORE Objective - Results Result Diagrams: 02/24/18 05:50 02/24/18 05:50 Recent Labs: Laboratory Last Values WBC 8.0 Th/cmm (4.8-10.8) 02/24/18 05:50 RBC 4.62 Mil/cmm (3.80-5.10) 02/24/18 05:50 Hgb 13.8 gm/dL (12-16) 02/24/18 05:50 Hct 42.0 % (41.0-60) 02/24/18 05:50 MCV 90.9 fl (81-100) 02/24/18 05:50 MCH 29.8 pg (27.0-31.0) 02/24/18 05:50 MCHC Differential 32.8 pg (28.0-36.0) 02/24/18 05:50 RDW 13.1 % (11.5-20.0) 02/24/18 05:50 Plt Count 300 Th/cmm (150-400) 02/24/18 05:50 MPV 8.2 fl 02/24/18 05:50 Neutrophils % 52.4 % (40.0-80.0) 02/24/18 05:50 Band Neutrophils % 6 % (0-10) 02/22/18 05:00 Lymphocytes % 33.3 % (20.0-50.0) 02/24/18 05:50 Monocytes % 12.2 % (2.0-10.0) H 02/24/18 05:50 Eosinophils % 1.6 % (0.0-5.0) 02/24/18 05:50 Basophils % 0.5 % (0.0-2.0) 02/24/18 05:50 Neutrophils (Manual) 82 % (40-80) H 02/22/18 05:00 Lymphocytes 7 % (20-50) L 02/22/18 05:00 Monocytes 5 % (2-10) 02/22/18 05:00 Sodium 138 mEq/L (136-145) 02/24/18 05:50 Potassium 3.7 mEq/L (3.5-5.1) 02/24/18 05:50 Chloride 105 mEq/L (98-107) 02/24/18 05:50 Carbon Dioxide 24.7 mEq/L (21.0-31.0) 02/24/18 05:50 Anion Gap 12.0 (7.0-16.0) 02/24/18 05:50 BUN 8 mg/dL (7-25) 02/24/18 05:50 Creatinine 0.7 mg/dL (0.6-1.2) 02/24/18 05:50 Est GFR ( Amer) > 60.0 ml/min (>90) 02/24/18 05:50 Est GFR (Non-Af Amer) > 60.0 ml/min 02/24/18 05:50 BUN/Creatinine Ratio 11.4 02/24/18 05:50 Glucose 89 mg/dL (70-105) 02/24/18 05:50 Whole Bld Lactic Acid 1.26 mmol/L (0.60-1.99) 02/21/18 08:45 Calcium 9.3 mg/dL (8.6-10.3) 02/24/18 05:50 Magnesium 2.1 mg/dL (1.9-2.7) 02/22/18 05:00 Total Bilirubin 0.2 mg/dL (0.3-1.0) L 02/23/18 04:40 AST 14 U/L (13-39) 02/23/18 04:40 ALT 20 U/L (7-52) 02/23/18 04:40 Alkaline Phosphatase 72 U/L (34-104) 02/23/18 04:40 Total Protein 7.0 gm/dL (6.0-8.3) 02/23/18 04:40 Albumin 3.9 gm/dL (3.7-5.3) 02/23/18 04:40 Globulin 3.1 gm/dL 02/23/18 04:40 Albumin/Globulin Ratio 1.3 (1.0-1.8) 02/23/18 04:40 Urine Source CLEAN C 02/21/18 08:00 Urine Color YELLOW 02/21/18 08:00 Urine Clarity CLEAR (CLEAR) 02/21/18 08:00 Urine pH 7.5 (4.6 - 8.0) 02/21/18 08:00 Ur Specific [place] 1.010 (1.005-1.030) 02/21/18 08:00 Urine Protein NEGATIVE mg/dL (NEGATIVE) 02/21/18 08:00 Urine Glucose (UA) NEGATIVE mg/dL (NEGATIVE) 02/21/18 08:00 Urine Ketones NEGATIVE mg/dL (NEGATIVE) 02/21/18 08:00 Urine Blood NEGATIVE (NEGATIVE) 02/21/18 08:00 Urine Nitrate NEGATIVE (NEGATIVE) 02/21/18 08:00 Urine Bilirubin NEGATIVE (NEGATIVE) 02/21/18 08:00 Urine Urobilinogen 0.2 E.U./dL (0.2 - 1.0) 02/21/18 08:00 Ur Leukocyte Esterase NEGATIVE (NEGATIVE) 02/21/18 08:00 Urine RBC 0-2 /hpf (0-5) 02/21/18 08:00 Urine WBC 2-5 /hpf (0-5) 02/21/18 08:00 Ur Epithelial Cells MODERATE /lpf (FEW) 02/21/18 08:00 Urine Bacteria 1+ /hpf (NONE SEEN) H 02/21/18 08:00 Urine Test NEGATIVE 02/21/18 08:00 - Physical Exam Vitals and I&O: Vital Signs Temp 97.2 F 02/24/18 07:45 Pulse 70 02/24/18 07:45 Resp 18 02/24/18 07:45 BP 113/74 02/24/18 07:45 Pulse Ox 96 02/24/18 07:45 Intake & Output 02/23/18 02/24/18 02/24/18 18:59 06:59 18:59 Intake Total 250 440 Balance 250 440 Weight (lbs) 84.504 kg Intake: Intake, IV Amount 250 100 Levofloxacin 750mg/150mL 150 750 mg In 150 ml @ 100 mls/hr IV Q24HR [facility] Rx#: [id number] metroNIDAZOLE 500mg/NS 100 100 100mL 500 mg In 100 ml @ 100 mls/hr IV Q8HR [facility] Rx #:[id number] Oral 340 Other: # Voids 3 # Bowel Movements 0 Weight Source Bedscale Active Medications: Current Medications Acetaminophen (Tylenol) 650 mg PO Q6H PRN PRN Reason: Headache Stop: 04/22/18 13:02 Last Admin: 02/22/18 02:25 Dose: 650 mg Metronidazole (Flagyl) 500 mg in 100 mls @ 100 mls/hr IV Q8HR [facility] Stop: 04/22/18 12:59 Last Admin: 02/24/18 04:42 Dose: 100 mls/hr Potassium Chloride/Dextrose/Sod Cl (D5-0.45ns W/20 Meq Kcl) 1,000 mls @ 50 mls/ hr IV .Q20H [facility] Stop: 04/23/18 07:14 Last Admin: 02/23/18 12:54 Dose: 50 mls/hr Levofloxacin (Levaquin Pb) 750 mg in 150 mls @ 100 mls/hr IV Q24HR [facility] Stop: 04/23/18 08:59 Last Admin: 02/24/18 08:28 Dose: 100 mls/hr Morphine Sulfate (Morphine) 2 mg IVP Q6H PRN PRN Reason: Pain (Moderate) Stop: 04/22/18 11:29 Last Admin: 02/21/18 17:00 Dose: 2 mg Ondansetron HCl (Zofran) 4 mg IV Q4H PRN PRN Reason: Nausea / Vomiting Stop: 04/24/18 11:20 Last Admin: 02/23/18 11:35 Dose: 4 mg Pantoprazole Sodium (Protonix) 40 mg IVP DAILY [facility] Stop: 04/23/18 08:59 Last Admin: 02/24/18 08:28 Dose: 40 mg Tramadol HCl (Ultram) 50 mg PO Q6HR PRN PRN Reason: Pain (Moderate) Stop: 04/23/18 08:58 Last Admin: 02/23/18 11:35 Dose: 50 mg General: Alert, Oriented x3, No acute distress HEENT: Atraumatic, PERRLA, EOMI Neck: Supple Cardiovascular: Regular rate, Normal S1, Normal S2 Lungs: Clear to auscultation Abdomen: Bowel sounds, Soft Extremities: no Clubbing, no Cyanosis, no Edema - Procedures Procedures: Procedures Procedure Code Date ASPIRAT CURET-POST DELIV 69.52 02/16/06 DELIVERY ONLY 82358 03/16/08 DX PROC FETUS/AMNION NEC 75.35 07/08/02 EPISIOTOMY 73.6 07/08/02 MONITORING NOS 75.34 03/16/08 LOW CERVICAL 74.1 03/16/08 OBSTETRICAL CARE 57151 07/08/02 OBSTETRICAL CARE 91048 03/29/99 TREATMENT OF MISCARRIAGE 49501 02/16/06 Assessment/Plan - Problem List Patient Problems: All Active Problems GENERALIZED BODY ACHES AND ABDOMINAL EUGENIA (Acute) - Assessment Assessment: 47 YO FEMALE WITH DIVERTICULITIS CT SHOWED DIVERTICULOSIS WBC NORMALIZED LFTS NORMAL 1.CONT ABX 2.ADVANCE DIET 3.WILL NEED COLONOSCOPY IN 6-8 WEEKS OUTPATIENT; D/W PT AND FAMILY THAT THEY NEED TO SEE PCP TO ARRANGE OUTPATIENT COLO
[2018-02-24] MEDS: D5-0.45NS w/20 mEq KCL 1,000 ML IV SCH (16:39)
[2018-02-25] MEDS: metroNIDAZOLE 500mg/NS 100mL 500 MG/100 ML BAG IV SCH (04:03)
--- NOTE | 2018-02-25 07:57 | GI Progress Note ---
Subjective - Review of Systems Subjective: FEELING BETTER WANTING TO HOME Objective - Results Result Diagrams: 02/24/18 05:50 02/24/18 05:50 Recent Labs: Laboratory Last Values WBC 8.0 Th/cmm (4.8-10.8) 02/24/18 05:50 RBC 4.62 Mil/cmm (3.80-5.10) 02/24/18 05:50 Hgb 13.8 gm/dL (12-16) 02/24/18 05:50 Hct 42.0 % (41.0-60) 02/24/18 05:50 MCV 90.9 fl (81-100) 02/24/18 05:50 MCH 29.8 pg (27.0-31.0) 02/24/18 05:50 MCHC Differential 32.8 pg (28.0-36.0) 02/24/18 05:50 RDW 13.1 % (11.5-20.0) 02/24/18 05:50 Plt Count 300 Th/cmm (150-400) 02/24/18 05:50 MPV 8.2 fl 02/24/18 05:50 Neutrophils % 52.4 % (40.0-80.0) 02/24/18 05:50 Band Neutrophils % 6 % (0-10) 02/22/18 05:00 Lymphocytes % 33.3 % (20.0-50.0) 02/24/18 05:50 Monocytes % 12.2 % (2.0-10.0) H 02/24/18 05:50 Eosinophils % 1.6 % (0.0-5.0) 02/24/18 05:50 Basophils % 0.5 % (0.0-2.0) 02/24/18 05:50 Neutrophils (Manual) 82 % (40-80) H 02/22/18 05:00 Lymphocytes 7 % (20-50) L 02/22/18 05:00 Monocytes 5 % (2-10) 02/22/18 05:00 Sodium 138 mEq/L (136-145) 02/24/18 05:50 Potassium 3.7 mEq/L (3.5-5.1) 02/24/18 05:50 Chloride 105 mEq/L (98-107) 02/24/18 05:50 Carbon Dioxide 24.7 mEq/L (21.0-31.0) 02/24/18 05:50 Anion Gap 12.0 (7.0-16.0) 02/24/18 05:50 BUN 8 mg/dL (7-25) 02/24/18 05:50 Creatinine 0.7 mg/dL (0.6-1.2) 02/24/18 05:50 Est GFR ( Amer) > 60.0 ml/min (>90) 02/24/18 05:50 Est GFR (Non-Af Amer) > 60.0 ml/min 02/24/18 05:50 BUN/Creatinine Ratio 11.4 02/24/18 05:50 Glucose 89 mg/dL (70-105) 02/24/18 05:50 Whole Bld Lactic Acid 1.26 mmol/L (0.60-1.99) 02/21/18 08:45 Calcium 9.3 mg/dL (8.6-10.3) 02/24/18 05:50 Magnesium 2.1 mg/dL (1.9-2.7) 02/22/18 05:00 Total Bilirubin 0.2 mg/dL (0.3-1.0) L 02/23/18 04:40 AST 14 U/L (13-39) 02/23/18 04:40 ALT 20 U/L (7-52) 02/23/18 04:40 Alkaline Phosphatase 72 U/L (34-104) 02/23/18 04:40 Total Protein 7.0 gm/dL (6.0-8.3) 02/23/18 04:40 Albumin 3.9 gm/dL (3.7-5.3) 02/23/18 04:40 Globulin 3.1 gm/dL 02/23/18 04:40 Albumin/Globulin Ratio 1.3 (1.0-1.8) 02/23/18 04:40 Urine Source CLEAN C 02/21/18 08:00 Urine Color YELLOW 02/21/18 08:00 Urine Clarity CLEAR (CLEAR) 02/21/18 08:00 Urine pH 7.5 (4.6 - 8.0) 02/21/18 08:00 Ur Specific [place] 1.010 (1.005-1.030) 02/21/18 08:00 Urine Protein NEGATIVE mg/dL (NEGATIVE) 02/21/18 08:00 Urine Glucose (UA) NEGATIVE mg/dL (NEGATIVE) 02/21/18 08:00 Urine Ketones NEGATIVE mg/dL (NEGATIVE) 02/21/18 08:00 Urine Blood NEGATIVE (NEGATIVE) 02/21/18 08:00 Urine Nitrate NEGATIVE (NEGATIVE) 02/21/18 08:00 Urine Bilirubin NEGATIVE (NEGATIVE) 02/21/18 08:00 Urine Urobilinogen 0.2 E.U./dL (0.2 - 1.0) 02/21/18 08:00 Ur Leukocyte Esterase NEGATIVE (NEGATIVE) 02/21/18 08:00 Urine RBC 0-2 /hpf (0-5) 02/21/18 08:00 Urine WBC 2-5 /hpf (0-5) 02/21/18 08:00 Ur Epithelial Cells MODERATE /lpf (FEW) 02/21/18 08:00 Urine Bacteria 1+ /hpf (NONE SEEN) H 02/21/18 08:00 Urine Test NEGATIVE 02/21/18 08:00 - Physical Exam Vitals and I&O: Vital Signs Temp 97.2 F 02/25/18 07:39 Pulse 63 02/25/18 07:39 Resp 18 02/25/18 07:39 BP 109/60 02/25/18 07:39 Pulse Ox 95 02/25/18 07:39 Intake & Output 02/24/18 02/25/18 02/25/18 18:59 06:59 18:59 Intake Total 1250 100 Balance 1250 100 Weight (lbs) 84.368 kg Intake: Intake, IV Amount 1250 100 D5-0.45NS w/20 mEq KCL 1, 1000 000 ml @ 50 mls/hr IV . Q20H [facility] Rx#:[id number] Levofloxacin 750mg/150mL 150 750 mg In 150 ml @ 100 mls/hr IV Q24HR [facility] Rx#: [id number] metroNIDAZOLE 500mg/NS 100 100 100mL 500 mg In 100 ml @ 100 mls/hr IV Q8HR [facility] Rx #:[id number] Other: Stool Characteristics Formed Soft Weight Source Estimated Active Medications: Current Medications Acetaminophen (Tylenol) 650 mg PO Q6H PRN PRN Reason: Headache Stop: 04/22/18 13:02 Last Admin: 02/22/18 02:25 Dose: 650 mg Metronidazole (Flagyl) 500 mg in 100 mls @ 100 mls/hr IV Q8HR [facility] Stop: 04/22/18 12:59 Last Admin: 02/25/18 04:03 Dose: 100 mls/hr Potassium Chloride/Dextrose/Sod Cl (D5-0.45ns W/20 Meq Kcl) 1,000 mls @ 50 mls/ hr IV .Q20H [facility] Stop: 04/23/18 07:14 Last Admin: 02/24/18 16:39 Dose: 50 mls/hr Levofloxacin (Levaquin Pb) 750 mg in 150 mls @ 100 mls/hr IV Q24HR [facility] Stop: 04/23/18 08:59 Last Infusion: 02/24/18 10:00 Dose: Infused Morphine Sulfate (Morphine) 2 mg IVP Q6H PRN PRN Reason: Pain (Moderate) Stop: 04/22/18 11:29 Last Admin: 02/21/18 17:00 Dose: 2 mg Ondansetron HCl (Zofran) 4 mg IV Q4H PRN PRN Reason: Nausea / Vomiting Stop: 04/24/18 11:20 Last Admin: 02/24/18 09:46 Dose: 4 mg Pantoprazole Sodium (Protonix) 40 mg IVP DAILY [facility] Stop: 04/23/18 08:59 Last Admin: 02/24/18 08:28 Dose: 40 mg Tramadol HCl (Ultram) 50 mg PO Q6HR PRN PRN Reason: Pain (Moderate) Stop: 04/23/18 08:58 Last Admin: 02/23/18 11:35 Dose: 50 mg General: Alert, Oriented x3, No acute distress HEENT: Atraumatic, PERRLA, EOMI Neck: Supple Cardiovascular: Regular rate, Normal S1, Normal S2 Lungs: Clear to auscultation Abdomen: Bowel sounds, Soft Extremities: no Clubbing, no Cyanosis, no Edema - Procedures Procedures: Procedures Procedure Code Date ASPIRAT CURET-POST DELIV 69.52 02/16/06 DELIVERY ONLY 50782 03/16/08 DX PROC FETUS/AMNION NEC 75.35 07/08/02 EPISIOTOMY 73.6 07/08/02 MONITORING NOS 75.34 03/16/08 LOW CERVICAL 74.1 03/16/08 OBSTETRICAL CARE 76055 07/08/02 OBSTETRICAL CARE 79390 03/29/99 TREATMENT OF MISCARRIAGE 29613 02/16/06 Assessment/Plan - Problem List Patient Problems: All Active Problems GENERALIZED BODY ACHES AND ABDOMINAL EUGENIA (Acute) - Assessment Assessment: 47 YO FEMALE WITH DIVERTICULITIS CT SHOWED DIVERTICULOSIS WBC NORMALIZED LFTS NORMAL 1.CONT ABX 2.ADVANCE DIET 3.WILL NEED COLONOSCOPY IN 6-8 WEEKS OUTPATIENT; D/W PT AND FAMILY THAT THEY NEED TO SEE PCP TO ARRANGE OUTPATIENT COLO
[2018-02-25] MEDS: Levofloxacin 750mg/150mL 750 MG/150 ML BAG IV SCH (08:08)
--- NOTE | 2018-02-25 08:42 | General Progress Note ---
Subjective - Review of Systems Service Date: 02/25/18 Subjective: Patient was seen and examined. Doing much better. denies abdominal pain. no diarrhea. advance diet to regular diet. Objective - Results Result Diagrams: 02/24/18 05:50 02/24/18 05:50 Recent Labs: Laboratory Last Values WBC 8.0 Th/cmm (4.8-10.8) 02/24/18 05:50 RBC 4.62 Mil/cmm (3.80-5.10) 02/24/18 05:50 Hgb 13.8 gm/dL (12-16) 02/24/18 05:50 Hct 42.0 % (41.0-60) 02/24/18 05:50 MCV 90.9 fl (81-100) 02/24/18 05:50 MCH 29.8 pg (27.0-31.0) 02/24/18 05:50 MCHC Differential 32.8 pg (28.0-36.0) 02/24/18 05:50 RDW 13.1 % (11.5-20.0) 02/24/18 05:50 Plt Count 300 Th/cmm (150-400) 02/24/18 05:50 MPV 8.2 fl 02/24/18 05:50 Neutrophils % 52.4 % (40.0-80.0) 02/24/18 05:50 Band Neutrophils % 6 % (0-10) 02/22/18 05:00 Lymphocytes % 33.3 % (20.0-50.0) 02/24/18 05:50 Monocytes % 12.2 % (2.0-10.0) H 02/24/18 05:50 Eosinophils % 1.6 % (0.0-5.0) 02/24/18 05:50 Basophils % 0.5 % (0.0-2.0) 02/24/18 05:50 Neutrophils (Manual) 82 % (40-80) H 02/22/18 05:00 Lymphocytes 7 % (20-50) L 02/22/18 05:00 Monocytes 5 % (2-10) 02/22/18 05:00 Sodium 138 mEq/L (136-145) 02/24/18 05:50 Potassium 3.7 mEq/L (3.5-5.1) 02/24/18 05:50 Chloride 105 mEq/L (98-107) 02/24/18 05:50 Carbon Dioxide 24.7 mEq/L (21.0-31.0) 02/24/18 05:50 Anion Gap 12.0 (7.0-16.0) 02/24/18 05:50 BUN 8 mg/dL (7-25) 02/24/18 05:50 Creatinine 0.7 mg/dL (0.6-1.2) 02/24/18 05:50 Est GFR ( Amer) > 60.0 ml/min (>90) 02/24/18 05:50 Est GFR (Non-Af Amer) > 60.0 ml/min 02/24/18 05:50 BUN/Creatinine Ratio 11.4 02/24/18 05:50 Glucose 89 mg/dL (70-105) 02/24/18 05:50 Whole Bld Lactic Acid 1.26 mmol/L (0.60-1.99) 02/21/18 08:45 Calcium 9.3 mg/dL (8.6-10.3) 02/24/18 05:50 Magnesium 2.1 mg/dL (1.9-2.7) 02/22/18 05:00 Total Bilirubin 0.2 mg/dL (0.3-1.0) L 02/23/18 04:40 AST 14 U/L (13-39) 02/23/18 04:40 ALT 20 U/L (7-52) 02/23/18 04:40 Alkaline Phosphatase 72 U/L (34-104) 02/23/18 04:40 Total Protein 7.0 gm/dL (6.0-8.3) 02/23/18 04:40 Albumin 3.9 gm/dL (3.7-5.3) 02/23/18 04:40 Globulin 3.1 gm/dL 02/23/18 04:40 Albumin/Globulin Ratio 1.3 (1.0-1.8) 02/23/18 04:40 Urine Source CLEAN C 02/21/18 08:00 Urine Color YELLOW 02/21/18 08:00 Urine Clarity CLEAR (CLEAR) 02/21/18 08:00 Urine pH 7.5 (4.6 - 8.0) 02/21/18 08:00 Ur Specific [place] 1.010 (1.005-1.030) 02/21/18 08:00 Urine Protein NEGATIVE mg/dL (NEGATIVE) 02/21/18 08:00 Urine Glucose (UA) NEGATIVE mg/dL (NEGATIVE) 02/21/18 08:00 Urine Ketones NEGATIVE mg/dL (NEGATIVE) 02/21/18 08:00 Urine Blood NEGATIVE (NEGATIVE) 02/21/18 08:00 Urine Nitrate NEGATIVE (NEGATIVE) 02/21/18 08:00 Urine Bilirubin NEGATIVE (NEGATIVE) 02/21/18 08:00 Urine Urobilinogen 0.2 E.U./dL (0.2 - 1.0) 02/21/18 08:00 Ur Leukocyte Esterase NEGATIVE (NEGATIVE) 02/21/18 08:00 Urine RBC 0-2 /hpf (0-5) 02/21/18 08:00 Urine WBC 2-5 /hpf (0-5) 02/21/18 08:00 Ur Epithelial Cells MODERATE /lpf (FEW) 02/21/18 08:00 Urine Bacteria 1+ /hpf (NONE SEEN) H 02/21/18 08:00 Urine Test NEGATIVE 02/21/18 08:00 - Physical Exam Vitals and I&O: Vital Signs Temp 97.2 F 02/25/18 07:39 Pulse 63 02/25/18 07:39 Resp 18 02/25/18 07:39 BP 109/60 02/25/18 07:39 Pulse Ox 95 02/25/18 07:39 Intake & Output 02/24/18 02/25/18 02/25/18 18:59 06:59 18:59 Intake Total 1250 100 Balance 1250 100 Weight (lbs) 84.368 kg Intake: Intake, IV Amount 1250 100 D5-0.45NS w/20 mEq KCL 1, 1000 000 ml @ 50 mls/hr IV . Q20H [facility] Rx#:[id number] Levofloxacin 750mg/150mL 150 750 mg In 150 ml @ 100 mls/hr IV Q24HR [facility] Rx#: [id number] metroNIDAZOLE 500mg/NS 100 100 100mL 500 mg In 100 ml @ 100 mls/hr IV Q8HR [facility] Rx #:[id number] Other: Stool Characteristics Formed Soft Weight Source Estimated Active Medications: Current Medications Acetaminophen (Tylenol) 650 mg PO Q6H PRN PRN Reason: Headache Stop: 04/22/18 13:02 Last Admin: 02/22/18 02:25 Dose: 650 mg Metronidazole (Flagyl) 500 mg in 100 mls @ 100 mls/hr IV Q8HR [facility] Stop: 04/22/18 12:59 Last Admin: 02/25/18 04:03 Dose: 100 mls/hr Potassium Chloride/Dextrose/Sod Cl (D5-0.45ns W/20 Meq Kcl) 1,000 mls @ 50 mls/ hr IV .Q20H [facility] Stop: 04/23/18 07:14 Last Admin: 02/24/18 16:39 Dose: 50 mls/hr Levofloxacin (Levaquin Pb) 750 mg in 150 mls @ 100 mls/hr IV Q24HR [facility] Stop: 04/23/18 08:59 Last Admin: 02/25/18 08:08 Dose: 100 mls/hr Morphine Sulfate (Morphine) 2 mg IVP Q6H PRN PRN Reason: Pain (Moderate) Stop: 04/22/18 11:29 Last Admin: 02/21/18 17:00 Dose: 2 mg Ondansetron HCl (Zofran) 4 mg IV Q4H PRN PRN Reason: Nausea / Vomiting Stop: 04/24/18 11:20 Last Admin: 02/24/18 09:46 Dose: 4 mg Pantoprazole Sodium (Protonix) 40 mg IVP DAILY [facility] Stop: 04/23/18 08:59 Last Admin: 02/25/18 08:08 Dose: 40 mg Tramadol HCl (Ultram) 50 mg PO Q6HR PRN PRN Reason: Pain (Moderate) Stop: 04/23/18 08:58 Last Admin: 02/23/18 11:35 Dose: 50 mg General: Alert, Oriented x3, No acute distress HEENT: Atraumatic, PERRLA, EOMI Neck: Supple Cardiovascular: Regular rate, Normal S1, Normal S2 Lungs: Clear to auscultation Abdomen: Bowel sounds, Soft Extremities: no Clubbing, no Cyanosis, no Edema - Procedures Procedures: Procedures Procedure Code Date ASPIRAT CURET-POST DELIV 69.52 02/16/06 DELIVERY ONLY 58016 03/16/08 DX PROC FETUS/AMNION NEC 75.35 07/08/02 EPISIOTOMY 73.6 07/08/02 MONITORING NOS 75.34 03/16/08 LOW CERVICAL 74.1 03/16/08 OBSTETRICAL CARE 55249 07/08/02 OBSTETRICAL CARE 26296 03/29/99 TREATMENT OF MISCARRIAGE 04599 02/16/06 Assessment/Plan - Problem List Patient Problems: All Active Problems GENERALIZED BODY ACHES AND ABDOMINAL EUGENIA (Acute) - Assessment Assessment: Current Active Problems Problem Status Onset GENERALIZED BODY ACHES AND ABDOMINAL EUGENIA Acute diarrhea improved abdominal pain better headaches improved diverticulitis improving leukocytosis improved. 8K UTI - Plan Plan: on clear liquids IV fluids pain meds IV Levofloxacin 750mg IV Flagyl 500mg may DC home today if OK with GI
--- NOTE | 2018-03-01 12:06 | Discharge Summary ---
DATE OF DISCHARGE: 02/25/2018 PRELIMINARY DIAGNOSES: 1. Abdominal pain. 2. Diverticulitis. 3. Urinary tract infection. DISCHARGE DIAGNOSES: 1. Abdominal pain. 2. Diverticulitis. 3. Urinary tract infection. BRIEF HISTORY OF PRESENT ILLNESS: This is a 47-year-old female who presents to [facility] ER for complaints of body aches and joint pain. The patient presents with a white count of 16.9 thousand. While in the ER, the patient was seen by ER physician who ordered a CT of the abdomen and pelvis, which revealed acute diverticulitis. The patient was then subsequently started on IV antibiotics and IV fluids and kept n.p.o. initially and was then admitted for further evaluation and treatment. HOSPITAL COURSE: The patient improved during her hospital stay. His white count had started at 16.9 thousand on initial admission. This was repeated the following days and until the 02/24/2018, it had decreased down to 8.0. During her hospital stay, the patient was seen and evaluated by GI. See dictated report. Abdominal ultrasound also was ordered, which did not reveal anything acute. The patient's diet was then advanced from clear liquids to full liquids to a soft diet. She was subsequently discharged in stable condition, wants to follow up with her regular physician in 3-5 days. The patient was advised to avoid any foods, have nuts or seeds. The patient was then also given a course of antibiotics for which she takes orally, which includes Flagyl and Levaquin for a week. [facility]# [id number]
== END 2018-02-25 11:20 | disposition home or self-care (01) | DRG 244 ==
LOC: ER 08:03 → MSI 11:26
PROVIDERS: ADMIT Family Medicine; ATTEND Family Medicine
DX: K57.32 Diverticulitis of large intestine without perforation or abscess without bleeding (principal); R65.11 Systemic inflammatory response syndrome (SIRS) of non-infectious origin with acute organ dysfunction; K76.0 Fatty (change of) liver, not elsewhere classified; N39.0 Urinary tract infection, site not specified; R19.7 Diarrhea, unspecified; R51 Headache; Z88.0 Allergy status to penicillin; Z82.49 Family history of ischemic heart disease and other diseases of the circulatory system; Z83.3 Family history of diabetes mellitus
CPT/HCPCS: 36415-UA; 76700-TC; 80048-TC; 80053-TC; 81001-TC; 81025-TC; 83605; 83735-TC; 85007-TC; 85025-TC; 85027-TC; 90784; 90799; 96374; C9113; J1885; J1956; J2270; J2405; J7030; Z7610

== ENCOUNTER 2018-12-22 10:29 | Inpatient (IN) | payer MEDICAID ==
--- NOTE | 2018-12-22 10:50 | ED Physician Chart ---
ED Chief Complaint/HPI - Patient Information Date Seen:: 12/22/18 Time Seen:: 10:35 Chief Complaint:: Dyspnea History of Present Illness:: onset x 2 days of dyspnea, fever, cough, and chest pain; pt denies trauma, H/As , neck pain, Abd. Pain, A/N/V/D/C, chills, or urinary s/s Allergies:: Allergies Allergy/AdvReac Type Severity Reaction Status Date / Time Penicillins Allergy Verified 04/10/17 18:14 Vitals:: Vital Signs - 8 hr 12/22/18 10:34 Temp 97.6 F HR 86 RR 18 BP 125/82 O2 Sat % 97 Historian:: Patient Review:: Nurse's Note Reviewed, Old Chart Reviewed ED Review of Systems - Review of Systems General/Constitutional: Fever, No chills, No weight loss, No weakness, No diaphoresis, No edema, No loss of appetite Skin: No skin lesions, No rash, No bruising Head: No headache, No light-headedness Eyes: No loss of vision, No pain, No diplopia ENT: No earache, No nasal drainage, No sore throat, No tinnitus Neck: No neck pain, No swelling, No thyromegaly, No stiffness, No mass noted Cardio Vascular: Chest pain, Palpitations, No PND, No orthopnea, No edema Pulmonary: SOB, Cough, No sputum, No wheezing GI: No nausea, No vomiting, No diarrhea, No pain, No melena, No hematochezia, No constipation, No hematemesis G/U: No dysuria, No frequency, No hematuria Job Interviewer: No vaginal discharge, No abnormal vaginal bleed, No contraction Musculoskeletal: No bone or joint pain, No back pain, No muscle pain Endocrine: No polyuria, No polydipsia Psychiatric: No prior psych history, No depression, No anxiety, No suicidal ideation, No homicidal ideation, No auditory hallucination, No visual hallucination Hematopoietic: No bruising, No lymphadenopathy Allergic/Immuno: No urticaria, No angioedema Neurological: No syncope, No focal symptoms, No weakness, No paresthesia, No headache, No seizure, No dizziness, No confusion, No vertigo ED Past Medical History - Past Medical History Obtainable: Yes Past Medical History: HTN, Dyslipidemia Family History: HTN Social History: Non Smoker, No Alcohol, No Drug Use, Single Surgical History: None Psychiatricy History: None Medication: Reviewed Family Medical History - Family Member Mother History Unknown: Yes Ethnicity: Living Status: Hx Family Cancer: Yes Hx Family Coronary Artery Disease: No Hx Family Congestive Heart Failure: No Hx Family Hypertension: Yes Hx Family Stroke: No Hx Family Diabetes: Yes Hx Family Seizures: No Hx Family Dementia: No Hx Family AIDS: No Hx Family HIV: No Hx Family COPD: No Hx Family Hepatitis: No Hx Family Psychiatric Problems: No Hx Family Tuberculosis: No ED Physical Exam - Physical Examination General/Constitutional: Awake, Well-developed, well-nourished, Alert, No distress, GCS 15, Non-toxic appearing, Ambulatory Head: Atraumatic Eyes: Lids, conjuctiva normal, PERRL, EOMI Skin: Nl inspection, No rash, No skin lesions, No ecchymosis, Well hydrated, No lymphadenopathy ENMT: External ears, nose nl, TM canals nl, Nasal exam nl, Lips, teeth, gums nl , Oropharynx nl, Tonsils nl Neck: Nontender, Full ROM w/o pain, No JVD, No nuchal rigidity, No bruit, No mass, No stridor Other Neck comments:: supple; no meningeal signs; no cervical tenderness Respiratory: Nl effort/Exclusion Other Respiratory comments:: Lungs: + Rales and Rhonchi Cardio Vascular: RRR, No murmur, gallop, rubs, NL S1 S2, Carotid/Femoral/Distal pulses equal bilaterally GI: No tenderness/rebounding/guarding, No organomegaly, No hernia, Normal BS's, Nondistended, No mass/bruits, No McBurney tenderness, Rectum exam nl Other GI comments:: no pulsatile masses : No CVA tenderness Extremities: No tenderness or effusion, Full ROM, normal strength in all extremities, No edema, Normal digits & nails Neuro/Psych: Alert/oriented, DTR's symmetric, Normal sensory exam, Normal motor strength, Judgement/insight normal, Mood normal, Normal gait, No focal deficits Misc: Normal back, No paraspinal tenderness ED Labs/Radiology/EKG Results - Lab Results Comments:: Reviewed - Radiology Results Comments:: CXR: + Patchy RLL Infiltrate - EKG Interpretations EKG Time:: 10:50 Rate & Rhythm: 70; NSR Comments:: non-specific st-t changes ED Septic Shock - . Is Septic Shock (SBP<90, OR Lactate>4 mmol\L) present?: No - <6hrs of presentation: Vital Signs: Vital Signs - 8 hr 12/22/18 10:34 Temp 97.6 F HR 86 RR 18 BP 125/82 O2 Sat % 97 ED Reassessment (Disposition) - Reassessment Reassessment Condition:: Improved - Diagnosis Diagnosis:: Dyspnea; Chest Pain; Angina Pectoris; Fever; PNA; Sepsis; Leukocytosis - Aftercare/Follow up Instructions Aftercare/Follow-Up Instructions:: Counseled pt regarding lab results/diagnosis & need follow up, Counseled pt & family regarding lab results/diagnosis & need follow up - Patient Disposition Discharge/Transfer:: Acute Care w/in this hosp Accepting Physician:: Dr. Corea Time Called:: 1230 Time Responded:: 12:30 Admitted to:: Telemetry Spoke to:: Dr. Corea Admitting Medical Physician:: Dr. Corea Condition at Disposition:: Stable, Improved
[2018-12-22 11:05] LABS: % BASOPHILS 0.5 % (0.0-2.0); % LYMPHOCYTES 11.7 % (20.0-50.0); % MONOCYTES 8.5 % (2.0-10.0); % NEUTROPHILS 78.3 % (40.0-80.0); BASOPHILE ABSOLUTE 0.1 Th/cumm (0-0.2); EOSINOPHILE ABSOLUTE 0.1 Th/cmm (0.1-0.4); HEMATOCRIT 41.2 % (41.0-60); HEMOGLOBIN 14.3 gm/dL (12-16); LYMPHOCYTE ABSOLUTE 1.7 Th/cmm (1.5-3.0); MEAN CELL VOLUME 90.1 fl (81-100); MEAN CORPUSCULAR HEMOGLOBIN 31.3 pg (27.0-31.0); MEAN CORPUSCULAR HGB CONC 34.7 pg (28.0-36.0); MEAN PLATELET VOLUME 7.9 fl; MONOCYTE ABSOLUTE 1.2 Th/cmm (0.3-1.0); NEUTROPHILE ABSOLUTE 11.6 Th/cmm (1.8-8.0); PLATELET COUNT 265 Th/cmm (150-400); RED BLOOD COUNT 4.57 Mil/cmm (3.80-5.10); RED CELL DISTRIBUTION WIDTH 12.1 % (11.5-20.0); WHITE BLOOD COUNT 14.7 Th/cmm (4.8-10.8)
[2018-12-22 11:21] LABS: INR 0.97 (0.5-1.4); PROTHROMBIN TIME (TEST) 10.1 SECONDS (9.5-11.5)
[2018-12-22 11:22] LABS: ALBUMIN 4.1 gm/dL (3.7-5.3); ALKALINE PHOSPHATASE 87 U/L (34-104); ANION GAP 13.6 (7.0-16.0); BILIRUBIN,TOTAL 0.4 mg/dL (0.3-1.0); BUN - UREA NITROGEN 7 mg/dL (7-25); CALCIUM SERUM 9.2 mg/dL (8.6-10.3); CARBON DIOXIDE 23.9 mEq/L (21.0-31.0); CHLORIDE 102 mEq/L (98-107); CHOLESTEROL 168 mg/dL (<200); CREATININE - SERUM 0.6 mg/dL (0.6-1.2); CREATININE KINASE 130 U/L (30-223); GFR AFRICAN-AMERICAN > 60.0 ml/min (>90); GFR NON AFRICAN-AMERICAN > 60.0 ml/min; GLUCOSE 103 mg/dL (70-105); HDL -HIGH DENSITY LIPOPROTEIN 37 mg/dL (23-92); POTASSIUM SERUM 3.5 mEq/L (3.5-5.1); SGOT 18 U/L (13-39); SGPT/ALT 26 U/L (7-52); SODIUM SERUM 136 mEq/L (136-145); TRIGLYCERIDES 87 mg/dL (<150)
[2018-12-22 11:35] LABS: DDIMER QUANT 211 ng/mL (100-400)
[2018-12-22] MEDS ORDERED: Aspirin 81mg Chewable Tab PO ONE (12:00)
[2018-12-22] MEDS ORDERED: Aspirin 81mg Chewable Tab ONE (12:15)
[2018-12-22] MEDS ORDERED: Levofloxacin 500mg/100mL 500 MG/100 ML BAG IV ONE ×2 (12:34→12:59)
[2018-12-22 12:56] LABS: ALB/GLOB RATIO 1.1 (1.0-1.8)
--- NOTE | 2018-12-22 13:04 | Diagnostic Imaging Report ---
Portable chest x-ray History: Pain Allowing for portable technique the heart size is normal. No focal pulmonary parenchymal processes. No hilar or mediastinal abnormalities. Impression: No acute abnormalities.
[2018-12-22] MEDS ORDERED: Levofloxacin 750mg/150mL 750 MG/150 ML BAG IV SCH (14:15)
[2018-12-22] MEDS: Albuterol/Ipratropium Neb 3 ML AERS HHN SCH ×3 (15:36→23:30)
[2018-12-22] MEDS ORDERED: Pneumococcal Vaccine 0.5 mL Vial IM ONE (15:43)
[2018-12-22 15:53] VITALS: BP 121/74
[2018-12-22] MEDS: D5-0.45NS w/20 mEq KCL 1,000 ML IV SCH (16:16)
--- NOTE | 2018-12-22 22:51 | History & Physical ---
ADMIT DATE: 12/22/2018 CHIEF COMPLAINT: Cough and shortness of breath for 1-week duration. HISTORY OF PRESENT ILLNESS: The patient is a 48-year-old female who presented to the Emergency Room complaining of cough and shortness of breath for 1-week duration, evaluated by the ER physician. Initial workup significant for pneumonia. The patient admitted to the hospital, started on IV fluid, antibiotic and breathing treatment. No chest pain, no nausea, no vomiting, no fever, no chills. PAST MEDICAL HISTORY: Negative. PAST SURGICAL HISTORY: Negative. ALLERGIES: PENICILLIN. MEDICATIONS: None. SOCIAL HISTORY: No smoking, no alcohol, no drugs. FAMILY HISTORY: Noncontributory. REVIEW OF SYSTEMS: IMMUNOSYSTEM: No history of chronic renal disorder. CARDIOVASCULAR SYSTEM: No coronary artery disease. ENDOCRINE SYSTEM: No diabetes or thyroid problem. GASTROINTESTINAL SYSTEM: No upper or lower gastrointestinal bleed. NEUROLOGICAL SYSTEM: No seizure disorder. SKELTOMUSCULOSKELETAL SYSTEM: No muscular dystrophy. HEMATOLOGICAL SYSTEM: No bleeding tendency. RESPIRATORY SYSTEM: She has cough and congestion for 1 week. GENITOURINARY SYSTEM: No dysuria or hematuria. PHYSICAL EXAMINATION: GENERAL: She is awake, alert and oriented. VITAL SIGNS: Temperature 98, heart rate 88 and blood pressure 136/70. HEENT: Normocephalic. Pupils reacting equal to light and accommodation. Sclerae clear. NECK: Supple. Negative for lymphadenopathy, JVD or bruit. CHEST: Fair bilateral, diminished associated with rhonchi. HEART: S1 and S2 normal. No murmur or gallop rhythm. ABDOMEN: Soft, bowel sounds positive. EXTREMITIES: No edema. NEUROLOGIC: Awake, alert and oriented. No focal muscle deficits. Cranial nerves 2-12 intact. LABORATORY DATA: White blood cell 14.7, hemoglobin 14.3, hematocrit 41.2 and platelet 265. Sodium 136, potassium 3.5, BUN is 7 and creatinine 0.6. ASSESSMENT: Pneumonia. PLAN: The patient in the hospital under Dr. Corea's service, started on fluid, IV antibiotic, 2 liters nasal cannula oxygen, breathing treatment with DuoNeb every 6 hours, CBC in a.m. The patient is a full code. JOB# [id number]
[2018-12-23] MEDS: Albuterol/Ipratropium Neb 3 ML AERS HHN SCH ×7 (02:05→19:49)
[2018-12-23 05:24] LABS: % BASOPHILS 0.3 % (0.0-2.0); % EOSINOPHILS 0.8 % (0.0-5.0); EOSINOPHILE ABSOLUTE 0.1 Th/cmm (0.1-0.4); HEMOGLOBIN 13.6 gm/dL (12-16); LYMPHOCYTE ABSOLUTE 2.1 Th/cmm (1.5-3.0); MEAN CORPUSCULAR HEMOGLOBIN 30.5 pg (27.0-31.0); MONOCYTE ABSOLUTE 1.4 Th/cmm (0.3-1.0)
[2018-12-23 05:38] LABS: % LYMPHOCYTES 14.1 % (20.0-50.0); % MONOCYTES 9.4 % (2.0-10.0); % NEUTROPHILS 75.4 % (40.0-80.0); HEMATOCRIT 39.9 % (41.0-60); MEAN CELL VOLUME 89.7 fl (81-100); MEAN PLATELET VOLUME 8.3 fl; NEUTROPHILE ABSOLUTE 11.5 Th/cmm (1.8-8.0); PLATELET COUNT 275 Th/cmm (150-400); RED BLOOD COUNT 4.45 Mil/cmm (3.80-5.10); RED CELL DISTRIBUTION WIDTH 12.5 % (11.5-20.0)
[2018-12-23 05:41] LABS: WHITE BLOOD COUNT 15.1 Th/cmm (4.8-10.8)
[2018-12-23] MEDS: D5-0.45NS w/20 mEq KCL 1,000 ML IV SCH (10:30)
[2018-12-23] MEDS: Levofloxacin 750mg/150mL 750 MG/150 ML BAG IV SCH (14:29)
--- NOTE | 2018-12-23 18:15 | Internal Medicine Prog Note ---
Internal Medicine Subjective - Subjective Service Date: 12/23/18 Patient seen and examined:: without staff Patient is:: awake, in bed, talking Per staff patient has:: no adverse event Internal Medicine Objective - Results Result Diagrams: 12/23/18 05:00 12/22/18 10:55 Recent Labs: Laboratory Last Values WBC 15.1 Th/cmm (4.8-10.8) H 12/23/18 05:00 RBC 4.45 Mil/cmm (3.80-5.10) 12/23/18 05:00 Hgb 13.6 gm/dL (12-16) 12/23/18 05:00 Hct 39.9 % (41.0-60) L 12/23/18 05:00 MCV 89.7 fl (81-100) 12/23/18 05:00 MCH 30.5 pg (27.0-31.0) 12/23/18 05:00 MCHC Differential 34.0 pg (28.0-36.0) 12/23/18 05:00 RDW 12.5 % (11.5-20.0) 12/23/18 05:00 Plt Count 275 Th/cmm (150-400) 12/23/18 05:00 MPV 8.3 fl 12/23/18 05:00 Neutrophils % 75.4 % (40.0-80.0) 12/23/18 05:00 Lymphocytes % 14.1 % (20.0-50.0) L 12/23/18 05:00 Monocytes % 9.4 % (2.0-10.0) 12/23/18 05:00 Eosinophils % 0.8 % (0.0-5.0) 12/23/18 05:00 Basophils % 0.3 % (0.0-2.0) 12/23/18 05:00 PT 10.1 SECONDS (9.5-11.5) 12/22/18 10:55 INR 0.97 (0.5-1.4) 12/22/18 10:55 D-Dimer 211 ng/mL (100-400) 12/22/18 10:55 Sodium 136 mEq/L (136-145) 12/22/18 10:55 Potassium 3.5 mEq/L (3.5-5.1) 12/22/18 10:55 Chloride 102 mEq/L (98-107) 12/22/18 10:55 Carbon Dioxide 23.9 mEq/L (21.0-31.0) 12/22/18 10:55 Anion Gap 13.6 (7.0-16.0) 12/22/18 10:55 BUN 7 mg/dL (7-25) 12/22/18 10:55 Creatinine 0.6 mg/dL (0.6-1.2) 12/22/18 10:55 Est GFR ( Amer) > 60.0 ml/min (>90) 12/22/18 10:55 Est GFR (Non-Af Amer) > 60.0 ml/min 12/22/18 10:55 BUN/Creatinine Ratio 11.7 12/22/18 10:55 Glucose 103 mg/dL (70-105) 12/22/18 10:55 POC Glucose 75 MG/DL (70 - 105) 12/22/18 14:49 Calcium 9.2 mg/dL (8.6-10.3) 12/22/18 10:55 Total Bilirubin 0.4 mg/dL (0.3-1.0) 12/22/18 10:55 AST 18 U/L (13-39) 12/22/18 10:55 ALT 26 U/L (7-52) 12/22/18 10:55 Alkaline Phosphatase 87 U/L (34-104) 12/22/18 10:55 Creatine Kinase 130 U/L (30-223) 12/22/18 10:55 Troponin I < 0.01 ng/mL (0.01-0.05) L 12/22/18 10:55 B-Natriuretic Peptide 31.6 pg/mL (5.0-100.0) 12/22/18 10:55 Total Protein 8.0 gm/dL (6.0-8.3) 12/22/18 10:55 Albumin 4.1 gm/dL (3.7-5.3) 12/22/18 10:55 Globulin 3.9 gm/dL 12/22/18 10:55 Albumin/Globulin Ratio 1.1 (1.0-1.8) 12/22/18 10:55 Triglycerides 87 mg/dL (<150) 12/22/18 10:55 Cholesterol 168 mg/dL (<200) 12/22/18 10:55 LDL Cholesterol Direct 133 mg/dL (75-193) 12/22/18 10:55 HDL Cholesterol 37 mg/dL (23-92) 12/22/18 10:55 Serum , Qual NEGATIVE (NEGATIVE) 12/22/18 10:55 - Physical Exam Vitals and I&O: Vital Signs Temp 98.2 F 12/23/18 16:00 Pulse 77 12/23/18 16:00 Resp 20 12/23/18 16:00 BP 100/48 12/23/18 16:00 Pulse Ox 99 12/23/18 16:00 Intake & Output 12/22/18 12/23/18 12/23/18 18:59 06:59 18:59 Intake Total 100 1800 Balance 100 1800 Weight (lbs) 87.997 kg 88.949 kg Intake: Intake, IV Amount 100 1000 D5-0.45NS w/20 mEq KCL 1, 1000 000 ml @ 75 mls/hr IV . [id number] [facility] Rx#:[id number] Levofloxacin 500mg/100mL 100 500 mg In 100 ml @ 100 mls/hr IV X1 [facility] Rx#: [id number] Oral 800 Other: Weight Source Patient stated Bedscale Active Medications: Current Medications Acetaminophen (Tylenol) 650 mg PO Q4H PRN PRN Reason: Pain (Mild) Stop: 02/20/19 20:46 Last Admin: 12/22/18 21:55 Dose: 650 mg Albuterol/Ipratropium (Duoneb Neb) 3 ml HHN Q4HRT [facility] Stop: 02/20/19 22:59 Last Admin: 12/23/18 07:04 Dose: 3 ml Albuterol/Ipratropium (Duoneb Neb) 3 ml HHN Q6HRT [facility] Stop: 02/21/19 00:59 Last Admin: 12/23/18 13:06 Dose: 3 ml Potassium Chloride/Dextrose/Sod Cl (D5-0.45ns W/20 Meq Kcl) 1,000 mls @ 75 mls/ hr IV .[id number] [facility] Stop: 02/20/19 14:14 Last Admin: 12/23/18 10:30 Dose: 75 mls/hr Levofloxacin (Levaquin Pb) 750 mg in 150 mls @ 100 mls/hr IV Q24HR [facility] Stop: 12/29/18 15:29 Last Admin: 12/23/18 14:29 Dose: 100 mls/hr Potassium Chloride/Sodium Chloride (0.45% Ns W/20 Meq Kcl) 1,000 mls @ 75 mls/ hr IV .[id number] [facility] Stop: 02/20/19 22:14 General: alert HEENT: NC/AT, PERRLA, EOMI, anicteric sclerae, throat clear Neck: Supple, No JVD, No thyromegaly, +2 carotid pulse wo bruit, No LAD Lungs: congested, ronchi Cardiovascular: RRR, Normal S1, Normal S2, without murmur Abdomen: soft, non-tender, non-distended Extremities: clear Neurological: no change - Procedures Procedures: Procedures Procedure Code Date ASPIRAT CURET-POST DELIV 69.52 02/16/06 DELIVERY ONLY 45555 03/16/08 DX PROC FETUS/AMNION NEC 75.35 07/08/02 EPISIOTOMY 73.6 07/08/02 MONITORING NOS 75.34 03/16/08 LOW CERVICAL 74.1 03/16/08 OBSTETRICAL CARE 78138 07/08/02 OBSTETRICAL CARE 18398 03/29/99 TREATMENT OF MISCARRIAGE 87045 02/16/06 Internal Medicine Assmt/Plan - Assessment Assessment: 1.PNEUMONIA - Plan Plan: CONTINUE ON CURRENT MEDICATION AND DIET
[2018-12-24] MEDS: 0.45% NS w/20 mEq KCl 1,000 ML IV SCH ×2 (01:52→15:26)
[2018-12-24] MEDS: Albuterol/Ipratropium Neb 3 ML AERS HHN SCH ×6 (03:47→20:01)
[2018-12-24 06:26] LABS: % BASOPHILS 0.5 % (0.0-2.0); % EOSINOPHILS 2.7 % (0.0-5.0); % LYMPHOCYTES 24.1 % (20.0-50.0); % MONOCYTES 10.4 % (2.0-10.0); % NEUTROPHILS 62.3 % (40.0-80.0); EOSINOPHILE ABSOLUTE 0.3 Th/cmm (0.1-0.4); HEMOGLOBIN 13.6 gm/dL (12-16); LYMPHOCYTE ABSOLUTE 2.4 Th/cmm (1.5-3.0); MEAN CELL VOLUME 91.1 fl (81-100); MEAN CORPUSCULAR HEMOGLOBIN 30.3 pg (27.0-31.0); MEAN CORPUSCULAR HGB CONC 33.2 pg (28.0-36.0); MEAN PLATELET VOLUME 8.2 fl; NEUTROPHILE ABSOLUTE 6.3 Th/cmm (1.8-8.0); PLATELET COUNT 310 Th/cmm (150-400); RED CELL DISTRIBUTION WIDTH 12.9 % (11.5-20.0)
[2018-12-24] MEDS ORDERED: Probiotic Screen MC PRN (09:06)
[2018-12-24] MEDS: Lactobacillus Rhamnosus GG 15 Billion CFU CAP.SPRINK PO SCH (11:08)
[2018-12-24] MEDS: Levofloxacin 750mg/150mL 750 MG/150 ML BAG IV SCH (13:57)
--- NOTE | 2018-12-24 20:18 | Internal Medicine Prog Note ---
Internal Medicine Subjective - Subjective Service Date: 12/24/18 Patient seen and examined:: without staff (SHE FEELS BETTER,STILL COUGHING.) Patient is:: awake, in bed, talking Per staff patient has:: no adverse event Internal Medicine Objective - Results Result Diagrams: 12/24/18 05:20 12/22/18 10:55 Recent Labs: Laboratory Last Values WBC 10.0 Th/cmm (4.8-10.8) 12/24/18 05:20 RBC 4.50 Mil/cmm (3.80-5.10) 12/24/18 05:20 Hgb 13.6 gm/dL (12-16) 12/24/18 05:20 Hct 41.0 % (41.0-60) 12/24/18 05:20 MCV 91.1 fl (81-100) 12/24/18 05:20 MCH 30.3 pg (27.0-31.0) 12/24/18 05:20 MCHC Differential 33.2 pg (28.0-36.0) 12/24/18 05:20 RDW 12.9 % (11.5-20.0) 12/24/18 05:20 Plt Count 310 Th/cmm (150-400) 12/24/18 05:20 MPV 8.2 fl 12/24/18 05:20 Neutrophils % 62.3 % (40.0-80.0) 12/24/18 05:20 Lymphocytes % 24.1 % (20.0-50.0) 12/24/18 05:20 Monocytes % 10.4 % (2.0-10.0) H 12/24/18 05:20 Eosinophils % 2.7 % (0.0-5.0) 12/24/18 05:20 Basophils % 0.5 % (0.0-2.0) 12/24/18 05:20 PT 10.1 SECONDS (9.5-11.5) 12/22/18 10:55 INR 0.97 (0.5-1.4) 12/22/18 10:55 D-Dimer 211 ng/mL (100-400) 12/22/18 10:55 Sodium 136 mEq/L (136-145) 12/22/18 10:55 Potassium 3.5 mEq/L (3.5-5.1) 12/22/18 10:55 Chloride 102 mEq/L (98-107) 12/22/18 10:55 Carbon Dioxide 23.9 mEq/L (21.0-31.0) 12/22/18 10:55 Anion Gap 13.6 (7.0-16.0) 12/22/18 10:55 BUN 7 mg/dL (7-25) 12/22/18 10:55 Creatinine 0.6 mg/dL (0.6-1.2) 12/22/18 10:55 Est GFR ( Amer) > 60.0 ml/min (>90) 12/22/18 10:55 Est GFR (Non-Af Amer) > 60.0 ml/min 12/22/18 10:55 BUN/Creatinine Ratio 11.7 12/22/18 10:55 Glucose 103 mg/dL (70-105) 12/22/18 10:55 POC Glucose 75 MG/DL (70 - 105) 12/22/18 14:49 Calcium 9.2 mg/dL (8.6-10.3) 12/22/18 10:55 Total Bilirubin 0.4 mg/dL (0.3-1.0) 12/22/18 10:55 AST 18 U/L (13-39) 12/22/18 10:55 ALT 26 U/L (7-52) 12/22/18 10:55 Alkaline Phosphatase 87 U/L (34-104) 12/22/18 10:55 Creatine Kinase 130 U/L (30-223) 12/22/18 10:55 Troponin I < 0.01 ng/mL (0.01-0.05) L 12/22/18 10:55 B-Natriuretic Peptide 31.6 pg/mL (5.0-100.0) 12/22/18 10:55 Total Protein 8.0 gm/dL (6.0-8.3) 12/22/18 10:55 Albumin 4.1 gm/dL (3.7-5.3) 12/22/18 10:55 Globulin 3.9 gm/dL 12/22/18 10:55 Albumin/Globulin Ratio 1.1 (1.0-1.8) 12/22/18 10:55 Triglycerides 87 mg/dL (<150) 12/22/18 10:55 Cholesterol 168 mg/dL (<200) 12/22/18 10:55 LDL Cholesterol Direct 133 mg/dL (75-193) 12/22/18 10:55 HDL Cholesterol 37 mg/dL (23-92) 12/22/18 10:55 Serum , Qual NEGATIVE (NEGATIVE) 12/22/18 10:55 - Physical Exam Vitals and I&O: Vital Signs Temp 97.7 F 12/24/18 16:00 Pulse 77 12/24/18 19:53 Resp 18 12/24/18 19:53 BP 130/82 12/24/18 16:00 Pulse Ox 96 12/24/18 19:53 Intake & Output 12/24/18 12/24/18 12/25/18 06:59 18:59 06:59 Intake Total 500 1775 Balance 500 1775 Weight (lbs) 88.949 kg 88.949 kg Intake: Intake, IV Amount 1000 0.45% NS w/20 mEq KCl 1, 1000 000 ml @ 75 mls/hr IV . [id number] [facility] Rx#:[id number] Oral 500 775 Other: # Voids 1 4 Weight Source Bedscale Bedscale Active Medications: Current Medications Acetaminophen (Tylenol) 650 mg PO Q4H PRN PRN Reason: Pain (Mild) Stop: 02/20/19 20:46 Last Admin: 12/22/18 21:55 Dose: 650 mg Albuterol/Ipratropium (Duoneb Neb) 3 ml HHN Q4HRT [facility] Stop: 02/20/19 22:59 Last Admin: 12/24/18 20:01 Dose: Not Given Albuterol/Ipratropium (Duoneb Neb) 3 ml HHN Q6HRT [facility] Stop: 02/21/19 00:59 Last Admin: 12/24/18 19:53 Dose: 3 ml Levofloxacin (Levaquin Pb) 750 mg in 150 mls @ 100 mls/hr IV Q24HR [facility] Stop: 12/29/18 15:29 Last Admin: 12/24/18 13:57 Dose: 100 mls/hr Potassium Chloride/Sodium Chloride (0.45% Ns W/20 Meq Kcl) 1,000 mls @ 75 mls/ hr IV .[id number] [facility] Stop: 02/20/19 22:14 Last Admin: 12/24/18 15:26 Dose: 75 mls/hr Lactobacillus Rhamnosus (Culturelle 15b) 1 each PO DAILY [facility] Stop: 02/22/19 11:59 Last Admin: 12/24/18 11:08 Dose: 1 each Miscellaneous (Probiotic Screen) 1 ea PRN PRN PRN Reason: PROTOCOL Stop: 02/22/19 09:05 General: alert HEENT: NC/AT, PERRLA, EOMI, anicteric sclerae, throat clear Neck: Supple, No JVD, No thyromegaly, +2 carotid pulse wo bruit, No LAD Lungs: congested, ronchi Cardiovascular: RRR, Normal S1, Normal S2, without murmur Abdomen: soft, non-tender, non-distended Extremities: clear Neurological: no change - Procedures Procedures: Procedures Procedure Code Date ASPIRAT CURET-POST DELIV 69.52 02/16/06 DELIVERY ONLY 41661 03/16/08 DX PROC FETUS/AMNION NEC 75.35 07/08/02 EPISIOTOMY 73.6 07/08/02 MONITORING NOS 75.34 03/16/08 LOW CERVICAL 74.1 03/16/08 OBSTETRICAL CARE 77359 07/08/02 OBSTETRICAL CARE 26590 03/29/99 TREATMENT OF MISCARRIAGE 82924 02/16/06 Internal Medicine Assmt/Plan - Assessment Assessment: 1.PNEUMONIA - Plan Plan: CONTINUE ON CURRENT MEDICATION AND DIET
[2018-12-25] MEDS: Albuterol/Ipratropium Neb 3 ML AERS HHN SCH ×4 (01:00→18:59)
[2018-12-25] MEDS: 0.45% NS w/20 mEq KCl 1,000 ML IV SCH ×2 (05:46→16:03)
[2018-12-25] MEDS: Lactobacillus Rhamnosus GG 15 Billion CFU CAP.SPRINK PO SCH (08:10)
[2018-12-25] MEDS: Levofloxacin 750mg/150mL 750 MG/150 ML BAG IV SCH (13:49)
--- NOTE | 2018-12-25 21:58 | Discharge Summary ---
DATE OF DISCHARGE: 12/25/2018 FINAL DIAGNOSIS: Gram-negative pneumonia. HISTORY OF PRESENT ILLNESS: The patient is a 48-year-old female presented to the Emergency Room with cough and shortness of breath. Initial workup significant for pneumonia, admitted to medical floor, started on antibiotic, breathing treatment. COURSE OF HOSPITALIZATION: During hospitalization, the patient improved clinically. On 12/24/2018, the patient was feeling better, less cough, less shortness of breath. Chest exam significant for rhonchi on both sides. Heart: S1, S2 normal. Abdomen soft. Bowel sounds positive. Extremities have no edema. LABORATORY AND DIAGNOSTIC DATA: White blood cell 10.0, hemoglobin 13.6, hematocrit 41.0. DISPOSITION: On 12/25/2018, the patient felt well, is afebrile. Chest clear to auscultation. Abdomen soft. Bowel sounds positive. The patient is going to discharge home. Follow up with primary physician in a week. CONDITION ON DISCHARGE: Stable. MEDICATIONS: Follow discharge reconciliation. [facility]# [id number]
== END 2018-12-25 19:20 | disposition home or self-care (01) | DRG 720 ==
LOC: ER 10:29 → MSI 14:15
PROVIDERS: ADMIT Family Medicine; ATTEND Family Medicine
DX: A41.9 Sepsis, unspecified organism (principal); J15.6 Pneumonia due to other Gram-negative bacteria; E78.5 Hyperlipidemia, unspecified; I10 Essential (primary) hypertension; I20.9 Angina pectoris, unspecified; Z88.0 Allergy status to penicillin
CPT/HCPCS: 36415-UA; 71045-TC; 80053-TC; 80061-TC; 82550-TC; 82948-90; 83880-TC; 84484-TC; 84703-TC; 85025-TC; 85379-TC; 85610-TC; 90784; 93005; 94640; 94760; J1956; J3480; Z7610